=== PATIENT | female | born 1950 | race Caucasian/White ===

== ENCOUNTER 2024-04-12 15:02 | Observation (INO) ==
--- NOTE | 2024-04-12 15:14 | ED Triage Note ---
Date of Service April 12, 2024 Provider in Triage Author: Celestine Mccullough History of Present Illness This patient was briefly evaluated while in triage. An abbreviated physical exam was performed. This patient is a 74-year-old Female who presents to the ED for evaluation of 15 minutes of feeling tired x 15 minutes. Tongue felt swollen but couldnt control. Physical Exam GENERAL: 74 year old female. In no acute distress. SKIN: No lesions or rashes. HEART: Regular rate and rhythm. LUNGS: Clear to auscultation. ABDOMEN: Bowel sounds normoactive. No guarding or rigidity. No tenderness of palpation. NEURO: Alert and oriented. Facial asymmetry noted. Left forehead with less wrinkle and mouth pulls to right as does tongue. MUSCULOSKELETAL: No deformities to inspection of the extremities. PSYCH: Patient is pleasant and answers all questions appropriately. Pt taken directly to a room for further assessment.
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
[2024-04-12] MEDS: LABETALOL HCL IV 5 MG/ML 20ML IV STA ×2 (15:52→16:21)
[2024-04-12] MEDS: OPTIRAY 320 125ml IV ONE (15:53)
[2024-04-12 16:00] LABS: Basophils # (auto) 0.05 K/uL (0.00-0.20); Basophils % (auto) 0.5 %; Eosinophils # (auto) 0.17 K/uL (0.00-0.50); Eosinophils % (auto) 1.7 %; Hematocrit (blood only) 42.5 % (37.0-47.0); Hemoglobin 14.3 g/dl (12.0-16.0); Immature Granulocytes # (auto) 0.04 K/uL (0.01-0.20); Immature Granulocytes % (auto) 0.4 %; Lymphocytes # (auto) 4.19 K/uL (1.20-3.40); Lymphocytes % (auto) 42.4 %; Mean Corpuscular Hemoglobin 29.9 pg (25.0-34.0); Mean Corpuscular Hgb Conc 33.6 g/dL (32.0-36.0); Mean Corpuscular Volume 88.7 fL (80.0-100.0); Monocytes # (auto) 0.56 K/uL (0.11-0.59); Monocytes % (auto) 5.7 %; Neutrophils # (auto) 4.88 K/uL (1.40-6.50); Neutrophils % (auto) 49.3 %; Platelet Count 313 K/uL (130-400); RDW Coefficient of Variation 13.4 % (11.5-14.5); RDW Standard Deviation 44.2 fL (36.4-46.3); Red Blood Count 4.79 M/uL (4.20-5.40); White Blood Count 9.89 K/ul (4.8-10.8)
[2024-04-12 16:04] LABS: Albumin Globulin Ratio 1.1 (0.9-2); Albumin Level 4.5 gm/dl (3.4-5.0); BUN Creatinine Ratio 18.3 (10-20); Bilirubin,Total 0.3 mg/dl (0.2-1.0); Calcium 10.5 mg/dl (8.6-10.3); Creatinine Clr Calc Pharmacy 38.6 ml/min; Magnesium 2.1 mg/dl (1.7-2.4); Total Protein 8.5 gm/dl (6.0-8.3)
--- NOTE | 2024-04-12 16:04 | CT Scan Report ---
CT angio head w con CLINICAL HISTORY: neuro deficit, acute stroke suspected TECHNIQUE: CT angiography of the head was performed following intravenous administration of iodinated contrast. Coronal and sagittal MIPS were obtained from the axial data set and were submitted for rev iew. Automated dose lowering techniques and/or adjustment according to patient size were utilized fo r this examination. All measurements were calculated based on NASCET criteria. Comparison: None available at the time of this dictation. FINDINGS: CTA Head: The anterior and posterior cerebral circulations are patent. No hemodynamically significan t stenosis, aneurysm, dissection, or arteriovenous malformation is shown. IMPRESSION: No occlusion, hemodynamically significant stenosis, aneurysm, dissection, or arteriovenous malformati on in the major intracranial arteries. Assessment of stenosis of the internal carotid arteries is based on NASCET criteria. ACT 112: Negative or not required by law. Electronically signed by: Shabbir Shaikh M.D. 04/12/2024 4:02 PM
--- NOTE | 2024-04-12 16:06 | CT Scan Report ---
CT OF THE HEAD WITHOUT CONTRAST CLINICAL HISTORY: neuro deficit, acute stroke suspected COMPARISON STUDY: Head CT December 10, 2010. MRI of the brain December 10, 2010. TECHNIQUE: Helical axial images of the head were obtained without IV contrast. Automated exposure con trol was utilized for the study. A dose lowering technique was utilized adhering to the principles o f ALARA. FINDINGS: No acute intracranial hemorrhage, midline shift or mass effect is present. Mild ventricular dilatation is likely due to central atrophy. White matter hypodense foci favor small vessel disease. The basal cisterns are patent. No extra-axial collections are present. There are no findings to sugg est acute dural sinus thrombosis or acute territorial infarct. No significant calvarial abnormalities are present. Visualized portions of the sinuses and mastoid air cells are clear. IMPRESSION: No acute intracranial findings. ACT 112: Negative or not required by law. Electronically signed by: Italo Amador M.D. 04/12/2024 4:05 PM
[2024-04-12 16:10] LABS: Troponin I High Sensitivity 8.8 pg/ml (0-14)
--- NOTE | 2024-04-12 16:13 | CT Scan Report ---
CT ANGIOGRAPHY OF THE NECK WITH CONTRAST CLINICAL HISTORY: neuro deficit, acute stroke suspected COMPARISON STUDY: Carotid ultrasound December 10, 2010. Technique: CT angiography of the carotid and vertebral arteries was obtained using Optir[employer] and 3D rec onstruction on an independent workstation. NASCET criteria was utilized. Automated exposure control was utilized for the study. A dose lowering technique was utilized adhering to the principles of ALA RA. CT DOSE: 2010.51 mGy.cm Findings: Please note that the CTA of the head and the head CT will be reported separately. Visualize d portions of the lung apices are unremarkable. There is no cervical lymphadenopathy. There are no ce rvical spine fractures. The bilateral common carotid, cervical internal carotid and vertebral arterie s are patent. Incidental note is made of retropharyngeal carotids. There are no stenoses or dissectio ns within the [place] vessels of the neck. There is mild atherosclerotic plaque within the right carot id bifurcation without stenosis. There is no aneurysm within the neck. IMPRESSION: No stenosis or dissection within the bilateral common carotid, cervical internal carotid or vertebral arteries. ACT 112: Negative or not required by law. Electronically signed by: Italo Amador M.D. 04/12/2024 4:11 PM
[2024-04-12 16:15] LABS: INR 0.9 (0.9-1.1); Partial Thromboplastin Ratio 0.9; Partial Thromboplastin Time 24 Seconds (21-31); Prothrombin Time 9.6 Seconds (9.0-12.0)
[2024-04-12] MEDS: SODIUM CHLORIDE 0.9% 1,000 ML IV SCH (16:37)
[2024-04-12] MEDS: CLOPIDOGREL BISULFATE 300 MG TAB PO STA (16:38)
[2024-04-12] MEDS: ASPIRIN 81 MG ECTAB PO STA (16:38)
[2024-04-12 16:58] LABS: Adenovirus PCR Not Detected (NotDetected); Bordetella parapertussis PCR Not Detected (NotDetected); Bordetella pertussis PCR Not Detected (NotDetected); Chlamydia pneumoniae PCR Not Detected (NotDetected); Coronavirus 229E PCR Not Detected (NotDetected); Coronavirus CoV-2 (COVID19)PCR Not Detected (NotDetected); Coronavirus HKU1 PCR Not Detected (NotDetected); Coronavirus NL63 PCR Not Detected (NotDetected); Coronavirus OC43PCR Not Detected (NotDetected); Human Metapneumovirus PCR Not Detected (NotDetected); Influenza A PCR Not Detected (NotDetected); Influenza B PCR Not Detected (NotDetected); Mycoplasma pneumoniae PCR Not Detected (NotDetected); Parainfluenza Virus 1 PCR Not Detected (NotDetected); Parainfluenza Virus 2 PCR Not Detected (NotDetected); Parainfluenza Virus 3 PCR Not Detected (NotDetected); Parainfluenza Virus 4 PCR Not Detected (NotDetected); Respiratory Syncytial VirusPCR Not Detected (NotDetected); Rhinovirus/Enterovirus PCR Not Detected (NotDetected)
[2024-04-12] MEDS ORDERED: PHARMACIST DISCHARGE MED REC CONSULT PRN (17:13)
[2024-04-12] MEDS ORDERED: ONDANSETRON INJ 2 MG/ML 2 ML VIAL IV PRN (17:19)
[2024-04-12] MEDS ORDERED: ACETAMINOPHEN 325 MG TAB PO PRN (17:19)
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
--- NOTE | 2024-04-12 17:37 | XRay Report ---
EXAM: XR chest 1V portable CLINICAL HISTORY: NEURO DEFICIT, ACUTE STROKE SUSPECTED BRM. TECHNIQUE: An X-ray image of the chest is obtained in AP projection. COMPARISON: No prior studies are available for comparison. FINDINGS: Pulmonary Parenchyma: No evidence of consolidation, collapse, or focal opacities. No pulmonary nodules are identified. No evidence of pleural effusion or pleural thickening. Heart and Mediastinum: Despite portable projection, there is a normal configuration of the mediastinum and the cardiac size is normal. Bony Thorax: Bony thorax appears intact without fractures or deformities. Soft Tissues: Soft tissues overlying the chest wall are unremarkable. Cardiac monitoring electrodes. IMPRESSION: No acute cardiopulmonary abnormalities. Normal chest radiograph. Electronically signed by Faith Roque 04-12-2024 5:36 PM
[2024-04-12] MEDS: ATORVASTATIN 40 MG TAB PO STA (17:54)
--- NOTE | 2024-04-12 19:19 | Magnetic Resonance Report ---
EXAMINATION: MRI brain without contrast CLINICAL HISTORY: Stroke protocol left-sided facial weakness PRIORS: None TECHNIQUE: Multiplanar multisequence imaging was obtained through the brain without the use of intravenous contrast. FINDINGS: Mild parenchymal volume loss is noted. Appropriate vance-white differentiation is seen. No restricted diffusion to suggest a recent infarction. No intraparenchymal blood products, ventriculomegaly or edema. Normal flow-voids demonstrated on T2 weighted imaging. Multiple scattered hyperintensities present within the deep white matter likely representing small vessel occlusive disease. Cerebellar tonsils are not low lying. IMPRESSION: No MRI evidence of an acute intracranial abnormality. Electronically signed by Alejandra Kapoor 04-12-2024 7:19 PM
--- OUTSIDE RECORDS SUMMARY | 2024-04-12 23:05 | External Medical Summary | Continuity of Care Document ---
Author Name Unknown Organization [address] Address [address] [place], [place] [id number] Care Team Providers Care Training Designer Name Role Phone Manda Garcia Primary Care P hysician [phone] Encounter [facility] [id number] Date(s): 03/28/24 - 03/28/24 [facility] [address] [place] [address] [place] [address], [facility] [address] [place] [address] [phone] Encounter Diagnosis Diabetes(Discharge Diagnosis) - 03/28/24 HLD (hyperlipidemia)(Discharge Diagnosis) - 03/28/24 Chronic constipation with overflow(Discharge Diagnosis) - 03/28/24 HTN (hypertension)(Discharge Diagnosis) - 03/28/24 Hypovitaminosis D(Discharge Diagnosis) - 03/28/24 Discharge Disposition: Home or Self Care Attending Physician: Jacob Ferreira DO, Mariana Annette Referring Physician: Jacob Ferreira DO, Mariana Annette Allergies, Adverse Reactions, Alerts Substance Criticality Severity Reaction Reaction Severity Status penicillin fever Active Percocet Passed out Active Benadryl removed lining from lungs liquid form Active red dye diuretic diarrhea Active Assessment and Plan Extracted from: Title:Office Visit Note Author:Jacob Ferreira DO, Mariana Annette Date:03/28/24 1.Diabetes STATUS:Chronic DATA:Labs reviewed. GOAL:A1c<8 PLAN: Discussed diet changes as A1c is climbing, recheck in 3 mo 2.HLD (hyperlipidemia) STATUS:Chronic stable. DATA:Labs reviewed. GOAL:Maintain stability. PLAN: Discussed diet changes, Pt did not tolerate statin in the past but does not remember what sx she had. May need to re-start statin if not improved with diet changes. 3.Chronic constipation with overflow STATUS:Chronic, improved DATA:Labs reviewed. GOAL:Maintain stability. PLAN:Cont current regimen . 4.HTN (hypertension) STATUS:Chronic stable. DATA:Labs reviewed. GOAL:Maintain stability. PLAN:Cont losartan . 5.Hypovitaminosis D STATUS:Chronic stable. DATA:Labs reviewed. GOAL:Maintain stability. PLAN:Cont vitamin D supplementation . Advised to call her manager room office and request appt withfemale provider Immunizations Given and Recorded Vaccine Date Status Refusal Reason SARS-CoV-2 mRNA (Pfizer 12+) bivalent 09/10/22 Rec orded SARS-CoV-2 mRNA (Pfizer 12+) bivalent 01/12/22 Rec orded influenza virus vaccine, inactivated 1 02/16/22 Gi nani influenza virus vaccine, inactivated 01/09/21 Ben rded influenza virus vaccine, inactivated 11/23/18 Ben rded influenza virus vaccine, inactivated 11/15/14 Ben rded SARS-CoV-2 mRNA ([id number]) 08/10/21 Re corded SARS-CoV-2 (COVID-19) mRNA BNT-162b2 vax 01/27/21 Recorded SARS-CoV-2 (COVID-19) mRNA BNT-162b2 vax 06/04/20 Recorded SARS-CoV-2 (COVID-19) mRNA BNT-162b2 vax 05/14/20 Recorded SARS-CoV-2 mRNA (tozinameran 5y-11y) 11/29/20 Ben rded pneumococcal 23-valent vaccine 01/27/18 Recorded pneumococcal 23-valent vaccine 08/02/14 Recorded pneumococcal 13-valent vaccine 11/19/16 Recorded pneumococcal 13-valent vaccine 02/13/15 Recorded 1Result Comment: Malinda Ware MA Medications losartan 25 mg oral tablet Start: 02/09/24 4:11:00 PM EDT, 1 tab, PO, Daily, Disp# 30 tab, Refills: 11, coated tablets, Pharmacy: [id number] Start Date: 02/09/24 Status: Ordered multivitamin Start: 06/30/23 1:02:00 PM EDT, 1 tab, PO, Daily Start Date: 06/30/23 Status: Ordered Rolaids Start: 03/28/24 2:09:00 PM EST Start Date: 03/28/24 Status: Ordered vegetable laxative Start: 05/25/23 1:36:00 PM EST, vegetable laxative, Note to Pharmacy: as needed Start Date: 05/25/23 Status: Ordered Vitamin D3 50 mcg (2000 intl units) oral capsule Start: 03/28/24 2:09:00 PM EST, 1 cap, PO, Daily Start Date: 03/28/24 Status: Ordered Mental Status 03/28/24 Barriers to Learning one year None evide nt Mandatory Health Literacy Documentation Yes Health Literacy Communication Barriers N ever Primary Language Setswana Problem List Condition Confirmation Course Effective Dates Status H ealth Status Informant Diarrhea Confirmed Active BMI 30.0-30.9,adult Confirmed Active Chronic constipation with overflow Confirmed Active Diabetes mellitus Confirmed Active Elevated blood pressure reading without diagnosis of hypertension Confirmed Active HTN (hypertension) Confirmed Active Insomnia, unspecified Confirmed Active Intellectual disability Confirmed Active IBS (irritable bowel syndrome) Confirmed Active Hypovitaminosis D Confirmed Active Weight loss Confirmed Active Diagnosis Diagnosis Type Effective Dates Health Status Clinical Service Informant Diabetes Discharge Diagnosis 03/28/24 Non-Specified HLD (hyperlipidemia) Discharge Diagnosis 03/28/24 Non-Specified Chronic constipation with overflow Discharge Diagnosis 03/28/24 Non-Specified HTN (hypertension) Discharge Diagnosis 03/28/24 Non-Specified Hypovitaminosis D Discharge Diagnosis 03/28/24 Non-Specified Procedures Procedure Date Related Diagnosis Body Site Status Colonoscopy 1 07/13/23 Completed 1Divertiuclosis in the sigmoid colon and in the descending colon. The retucm, sigmoid colon, descending colon, splenic flexure, transverse colon, hepatic flexure, ascending colon, cecum and recto-sigmoid colon are normal. Biopsied. Repeat in 10 years. Vital Signs Most recent to oldest [Reference Range]: 1 Patient Weight 70.7 kg (03/28/24 1:47 PM) Temperature [36.5-37.9 DegC] 36.4 DegC *LOW* (03/28/24 1:47 PM) Blood Pressure 132/82mmHg (03/28/24 1:47 PM) Cuff Pulse Pressure 50 mmHg (03/28/24 1:47 PM) Social History Social History Type Response Smoking Status Never smoked cigaret carlo Sex Female Sex Representation Female (finding) FCM Outpt Note * Jacob Ferreira DO, Mariana Annette: PERFORM Event Display: FCM Outpt Note Authored Date: [id number] Chief Complaint 6mo f/u, lab/urine result request. Had flu inj. History of Present Illness Presents for chronic condition management Has a hx of diet controlled diabetes, chronic constipation, HTN, low vitamin D. DM - A1c 7.6 - has been eating a lot more than usual HLD - C 249, TG >400 - previously on simvastatin but caused dizziness?, not sure if she tried any other statins HTN - on losartan 25mg, requests coated tablet otherwise gets heartburn Vitamin D deficiency - taking 2000 IU of vitamin D Constipation - takes laxative PRN Taking coricidinfor cold symptoms Wants referral for a different air boatswain, wants a female provider. 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 Physical Exam Vitals & Measurements T:36.4C BP:132/82 SpO2:95% WT:70.700kg(Dosing) WT:70.7kg PHQ2 Data(Data Documented on:03/28/2024 13:45) Emotional health assessment NEGATIVE General: _Alert and oriented, No acute distress Cardiovascular: _Normal rate, Regular rhythm, No murmur, No gallop. Respiratory: _Lungs are clear to auscultation, Respirations are non-labored, Breath sounds are equal Psych: Mood-affect congruence. Speech is of normal pace and content Assessment/Plan 1.Diabetes STATUS:Chronic DATA:Labs reviewed. GOAL:A1c<8 PLAN: Discussed diet changes as A1c is climbing, recheck in 3 mo 2.HLD (hyperlipidemia) STATUS:Chronic stable. DATA:Labs reviewed. GOAL:Maintain stability. PLAN: Discussed diet changes, Pt did not tolerate statin in the past but does not remember what sx she had. May need to re-start statin if not improved with diet changes. 3.Chronic constipation with overflow STATUS:Chronic, improved DATA:Labs reviewed. GOAL:Maintain stability. PLAN:Cont current regimen . 4.HTN (hypertension) STATUS:Chronic stable. DATA:Labs reviewed. GOAL:Maintain stability. PLAN:Cont losartan . 5.Hypovitaminosis D STATUS:Chronic stable. DATA:Labs reviewed. GOAL:Maintain stability. PLAN:Cont vitamin D supplementation . Advised to call her manager room office and request appt withfemale provider Attestation Time spent: Pre-visit planning: _5 Ffhx-os-dcnj visit: _32 Post-visit (orders/documentation/coordination of care):4 Total visit time: _41 Problem List/Past Medical History Ongoing BMI 30.0-30.9,adult Chronic constipation with overflow Diabetes mellitus Diarrhea Elevated blood pressure reading without diagnosis of hypertension HTN (hypertension) Hypovitaminosis D IBS (irritable bowel syndrome) Insomnia, unspecified Intellectual disability Weight loss Resolved Hypertension Procedure/Surgical History Colonoscopy| Service Date: 07/13/2023 Medications calcium carbonate-magnesium hydroxide(Rolaids) cholecalciferol(Vitamin D3 50 mcg (2000 intl units) oral capsule), 50 mcg= 1 cap, PO, Daily losartan(losartan 25 mg oral tablet), 1 tab, PO, Daily, 11 refills multivitamin, 1 tab, PO, Daily unlisted medication(vegetable laxative) Allergies Benadrylremoved lining from lungs, liquid form PercocetPassed out penicillinfever red dyediuretic, diarrhea Social History Smoking Status Never smoked cigarettes Alcohol - Denies Alcohol Use Tobacco - Denies Tobacco Use Family History Unable to obtain family history Immunizations Vaccine Date Status SARS-CoV-2 mRNA (Pfizer 12+) bivalent 09/10/2022 Recorded influenza virus vaccine, inactivated 02/16/2022 Given Comments : Malinda Ware MA SARS-CoV-2 mRNA (Pfizer 12+) bivalent 01/12/2022 Recorded SARS-CoV-2 mRNA (qsnohkjwllw-iibw-jwu) 08/10/2021 Recorded SARS-CoV-2 (COVID-19) mRNA BNT-162b2 vax 01/27/2021 Recorded influenza virus vaccine, inactivated 01/2021 Recorded SARS-CoV-2 mRNA (tozinameran 5y-11y) 11/29/2020 Recorded SARS-CoV-2 (COVID-19) mRNA BNT-162b2 vax 06/04/2020 Recorded SARS-CoV-2 (COVID-19) mRNA BNT-162b2 vax 05/14/2020 Recorded influenza virus vaccine, inactivated 11/23/2018 Recorded pneumococcal 23-valent vaccine 01/27/2018 Recorded pneumococcal 13-valent vaccine 11/19/2016 Recorded pneumococcal 13-valent vaccine 02/13/2015 Recorded influenza virus vaccine, inactivated 11/15/2014 Recorded pneumococcal 23-valent vaccine 08/02/2014 Recorded Recommendations Health Maintenance Pending(in the next year) OverDue Adult Influenza Vaccine due10/09/23and every 1year Due Adult Social Determinants of Health Screening due03/28/24Unknown Frequency Adult Tdap/Td Vaccine due03/28/24Unknown Frequency Medicare Annual Wellness Visit due03/28/24and every 1year Osteoporosis Screening due03/28/24One-time only Shingles Vaccine due03/28/24One-time only Due In Future Diabetic Eye Exam not due until08/06/24and every 731day Diabetes Management A1c not due until03/22/25and every 366day Satisfied(in the past 1 year) Satisfied Body Mass Index on08/23/23.Satisfied by HELENA [place] Lori Diabetes Management A1c on03/21/24.Satisfied by Contributor_system, [email or web address] Diabetes Nephropathy Management on03/21/24.Satisfied by Contributor_system, [email or web address] Lipid Screening on03/21/24.Satisfied by Contributor_system, [email or web address] Electronic Signature on File Electronically Reviewed/Signed by: Manda Ferreira DO Author Signature Dt/Tm:03/28/2024 04:49 PM Department of Family Medicine [facility] Patient Care team information Care Team Personnel Name: Jacob Ferreira DO, Mariana Annette Position: Physician - Family Med Member Role: Primary Care Provider Address: [address] [place] [address] Care Team Related Persons Name: STEVEN CENTENO Name: MICHELE MAC"
--- OUTSIDE RECORDS SUMMARY | 2024-04-12 23:06 | External Medical Summary | Continuity of Care Document ---
Author Name Unknown Organization [facility] [address] [place], [place] [id number] Care Team Providers Care Auto Locator Name Role Phone Manda Garcia Primary Care P laurensihuseyin [phone] [id number]s): 03/21/24 - 03/21/24 [facility] [address] [place] [address] [facility] [address] [place], [place] [phone] Encounter Diagnosis Essential (primary) hypertension(Final) - Irritable bowel syndrome, unspecified(Final) - Sciatica, unspecified side(Final) - Vitamin D deficiency, unspecified(Final) - Type 2 diabetes mellitus without complications(Final) - Discharge Disposition: Home or Self Care Attending Physician: Jacob Ferreira DO, Mariana Annette Referring Physician: Jacob Ferreira DO, Mariana Annette Allergies, Adverse Reactions, Alerts Substance Criticality Severity Reaction Reaction Severity Status penicillin fever Active Percocet Passed out Active Benadryl removed lining from lungs liquid form Active red dye diuretic diarrhea Active Immunizations Given and Recorded Vaccine Date Status Refusal Reason SARS-CoV-2 mRNA (Pfizer 12+) bivalent 09/10/22 Rec orded SARS-CoV-2 mRNA (Pfizer 12+) bivalent 01/12/22 Rec orded influenza virus vaccine, inactivated 1 02/16/22 Gi nani influenza virus vaccine, inactivated 01/09/21 Ben rded influenza virus vaccine, inactivated 11/23/18 Ben rded influenza virus vaccine, inactivated 11/15/14 Ben rded SARS-CoV-2 mRNA ([id number]) 08/10/21 Re corded SARS-CoV-2 (COVID-19) mRNA BNT-162b2 vax 01/27/21 Recorded SARS-CoV-2 (COVID-19) mRNA BNT-162b2 vax 06/04/20 Recorded SARS-CoV-2 (COVID-19) mRNA BNT-162b2 vax 05/14/20 Recorded SARS-CoV-2 mRNA (tozinameran 5y-11y) 11/29/20 Ben rded pneumococcal 23-valent vaccine 01/27/18 Recorded pneumococcal 23-valent vaccine 08/02/14 Recorded pneumococcal 13-valent vaccine 11/19/16 Recorded pneumococcal 13-valent vaccine 02/13/15 Recorded 1Result Comment: Malinda Ware MA Medications Benadryl Start: 08/23/23 1:02:00 PM EDT Start Date: 08/23/23 Status: Ordered losartan 25 mg oral tablet Start: 02/09/24 4:11:00 PM EDT, 1 tab, PO, Daily, Disp# 30 tab, Refills: 11, coated tablets, Pharmacy: [id number] Start Date: 02/09/24 Status: Ordered multivitamin Start: 06/30/23 1:02:00 PM EDT, 1 tab, PO, Daily Start Date: 06/30/23 Status: Ordered vegetable laxative Start: 05/25/23 1:36:00 PM EST, vegetable laxative, Note to Pharmacy: as needed Start Date: 05/25/23 Status: Ordered Problem List Condition Confirmation Course Effective Dates [...] D Confirmed Active Weight loss Confirmed Active Procedures Procedure Date Related Diagnosis Body Site Status Colonoscopy 1 07/13/23 Completed 1Divertiuclosis in the sigmoid colon and in the descending colon. The retucm, sigmoid colon, descending colon, splenic flexure, transverse colon, hepatic flexure, ascending colon, cecum and recto-sigmoid colon are normal. Biopsied. Repeat in 10 years. Results Laboratory List Name Date Comprehensive Metabolic Panel (COMP META B PANEL) 03/21/24 Hemoglobin A1C (HEMOGLOBIN, A1C) 4 Lipid Profile (LIPOPROTEINS) 03/21/24 Microalbumin, Urine, Random (MICROALBUMI N, RD UR) 03/21/24 Vitamin D, 25-Hydroxy Level, Total (25-H YDROXY VITAMIN D) 03/21/24 Most recent to oldest [Reference Range]: 1 eGFR CKD-EPI [>60 mL/min/1.73 m2] 57 mL/ min/1.73 m2 1 *LOW* (03/21/24 11:45 AM) Estimated Average Glucose 171 mg/dL 2 (03/21/24 11:45 AM) Vitamin D, 25-Hydroxy [30-100 ng/mL] 37 ng/mL 3 (03/21/24 11:45 AM) Non-HDL 195 mg/dL 4 (03/21/24 11:45 AM) Estimated CrCl 38.02 mL/min (03/21/24 1:18 PM) Micro Alb (u) [<2.00 mg/dL] 3.57 mg/dL *HI* (03/21/24 11:45 AM) Anion Gap [5-14 mmol/L] 10 mmol/L (03/21/24:45 AM) Alb [3.5-5.0 g/dL] 4.4 g/dL (03/21/24 11:45 AM) Alk Phos [38-126 unit/L] 89 unit/L (03/21/24:45 AM) ALT [<35 unit/L] 25 unit/L (03/21/24:45 AM) AST [15-46 unit/L] 24 unit/L (03/21/24 11:45 AM) BUN [7-20 mg/dL] 18 mg/dL (03/21/24:45 AM) Ca [8.4-10.2 mg/dL] 9.5 mg/dL (03/21/24 11:45 AM) Chol/HDL 5 (03/21/24:45 AM) Chol [125-200 mg/dL] 249 mg/dL *HI* (03/21/24 11:45 AM) Cl- [96-107 mmol/L] 102 mmol/L (03/21/24 11:45 AM) HCO3 [22-30 mmol/L] 25 mmol/L (03/21/24 11:45 AM) Cret [0.60-1.00 mg/dL] 1.03 mg/dL *HI* (03/21/24 11:45 AM) HbA1c [4.0-6.0 %] 7.6 % *HI* (03/21/24 11:45 AM) Glu [74-106 mg/dL] 139 mg/dL *HI* (03/21/24 11:45 AM) HDL [>35 mg/dL] 54 mg/dL (03/21/24 11:45 AM) K [3.5-5.1 mmol/L] 3.9 mmol/L (03/21/24 11:45 AM) LDL Chol, Calculated [50-130 mg/dL] NOT CALCULATED mg/dL (03/21/24 11:45 AM) Micro Alb Ratio [<20 ug/mg cret] 26 ug/m g cret *HI* (03/21/24 11:45 AM) Na [137-145 mmol/L] 137 mmol/L (03/21/24 11:45 AM) T Bili [0.2-1.3 mg/dL] 0.5 mg/dL (03/21/24 11:45 AM) Prot [6.3-8.2 g/dL] 7.9 g/dL (03/21/24 11:45 AM) TG [<200 mg/dL] 413 mg/dL *HI* (03/21/24 11:45 AM) Creat (u) 135.60 mg/dL 5 (03/21/24 11:45 AM) 1Result Comment: Testing Performed By: Dept of Pathology [facility] [address], [address] [place] [address], [place] [address] 2Result Comment: Testing Performed By: Dept of Pathology [facility] [address], [address] [facility], [place] [address] 3Result Comment: Deficiency: <20 ng/mL Insufficiency: 21-29 ng/mL Sufficiency: 30-100 ng/mL Potenial Toxicity: >150 ng/mL 4Result Comment: Testing Performed By: Dept of Pathology [facility] [address], [address] [facility] [place] [address] 5Result Comment: Reference Range for Random Urine Not Established. Social History Social History Type Response Smoking Status Never smoked cigaret carlo Sex Female Sex Representation Female (finding) Patient Care team information Care Team Personnel Name: Jacob Ferreira DO, Mariana Annette Position: Physician - Family Med Member Role: Primary Care Provider Address: [address] [facility] [address] [place] [id number] [place] Care Team Related Persons Name: STEVEN CENTENO Name: MICHELE MAC
[2024-04-13] MEDS: CALCIUM CARBONATE 500 MG CHEWABLE TAB PO PRN (02:23)
[2024-04-13 04:10] LABS: Basophils # (auto) 0.03 K/uL (0.00-0.20); Basophils % (auto) 0.3 %; Eosinophils # (auto) 0.12 K/uL (0.00-0.50); Eosinophils % (auto) 1.3 %; Hematocrit (blood only) 36.7 % (37.0-47.0); Hemoglobin 12.2 g/dl (12.0-16.0); Immature Granulocytes # (auto) 0.03 K/uL (0.01-0.20); Immature Granulocytes % (auto) 0.3 %; Lymphocytes # (auto) 3.42 K/uL (1.20-3.40); Lymphocytes % (auto) 36.4 %; Mean Corpuscular Hemoglobin 29.6 pg (25.0-34.0); Mean Corpuscular Hgb Conc 33.2 g/dL (32.0-36.0); Mean Corpuscular Volume 89.1 fL (80.0-100.0); Mean Platelet Volume 9.9 fL (9.4-12.4); Monocytes # (auto) 0.69 K/uL (0.11-0.59); Monocytes % (auto) 7.3 %; Neutrophils % (auto) 54.4 %; Platelet Count 287 K/uL (130-400); RDW Coefficient of Variation 13.8 % (11.5-14.5); Red Blood Count 4.12 M/uL (4.20-5.40); White Blood Count 9.39 K/ul (4.8-10.8)
[2024-04-13 04:26] LABS: Alanine Aminotransferase 19 U/L (7-52); Albumin Level 3.8 gm/dl (3.4-5.0); Alkaline Phosphatase 62 U/L (34-104); Anion Gap 11 (3-11); Aspartate Aminotransferase 21 U/L (13-39); BUN Creatinine Ratio 17.7 (10-20); Bilirubin,Total 0.3 mg/dl (0.2-1.0); Blood Urea Nitrogen 20 mg/dl (6-23); Calcium 9.2 mg/dl (8.6-10.3); Carbon Dioxide 25 mmol/L (21-32); Chloride 103 mmol/L (98-107); Cholesterol 243 mg/dl (0-200); Creatinine Clr Calc Pharmacy 26.6 ml/min; Glucose 169 mg/dl (70-99(Fasting)); HDL Cholesterol 51 mg/dl; Potassium 3.9 mmol/L (3.5-5.1); Sodium 139 mmol/L (136-145); Triglycerides 576 mg/dl (0-150)
[2024-04-13 04:40] LABS: Thyroid Stimulating Hormone 3.957 uIu/ml (0.300-4.500)
[2024-04-13 04:50] LABS: Albumin Globulin Ratio 1.2 (0.9-2); Chol HDL Ratio 4.8 (0-5); Globulin 3.2 gm/dl (2.5-4.0)
[2024-04-13 07:07] LABS: Estimated Average Glucose 189 mg/dl; Hemoglobin A1C 8.2 % (4.5-5.6)
[2024-04-13] MEDS: ASPIRIN 81 MG ECTAB PO SCH (09:05)
[2024-04-13] MEDS: CLOPIDOGREL BISULFATE 75 MG TAB PO SCH (09:06)
[2024-04-13] MEDS: ATORVASTATIN 40 MG TAB PO SCH (09:06)
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
--- NOTE | 2024-04-13 10:21 | Pharmacy Report ---
- Date of Service April 13, 2024 - Pharmacy CVA/TIA Medication Review Medications to Prevent Stroke handout has been added to the patients discharge packet. Antiplatelet(s) * aspirin 81 mg daily * plavix 75 mg daily Cholesterol * High intensity statin: atorvastatin 40 mg daily DVT Prophylaxis * SCD knee Therapeutic Anticoagulation * No history of Afib/Aflutter noted in the past * Per notes, consideration of outpatient cardiac monitoring recommended to determine if atrial flutter or fibrillation Type 2 Diabetes * Patient with A1c of 8.2% indicating diabetes * Provider aware patient not currently on any diabetes medications. Discussed use of low dose metformin + agent with CVD benefit (SGLT2 or GLP1) and provider agrees these agents are necessary and will assess on discharge
[2024-04-13] MEDS: METOPROLOL TARTRATE 25 MG TAB PO SCH (11:19)
--- NOTE | 2024-04-13 13:20 | Electrocardiogram Report ---
Test Reason : Blood Pressure : */* mmHG Vent. Rate : 123 BPM Atrial Rate : 123 BPM P-R Int : 176 ms QRS Dur : 74 ms QT Int : 338 ms P-R-T Axes : 31 20 22 degrees QTcB Int : 483 ms Sinus tachycardia Nonspecific ST abnormality Abnormal ECG When compared with ECG of 08-Apr-2023 15:13, Vent. rate has increased by 53 bpm Confirmed by Arjun Martins ([id number]) on 04/13/2024 1:19:56 PM Referred By: REFERRED SELF Confirmed By: Arjun Martins
--- NOTE | 2024-04-13 14:16 | XCELERA ---
[id number]
--- NOTE | 2024-04-13 16:19 | Hospitalist Progress Note ---
Date of Service April 13, 2024 Assessment & Plan (1) TIA (transient ischemic attack): Plan: clinical picture most c/w TIA had had transient expressive aphasia & facial droop per bystanders symptoms/signs resolved MRI brain negative for stroke localization - MCA territory? CTA head/neck negative tele thus far w/o a.fib or a.flutter echo normal; no PFO, no source of embolus small vessel TIA?? other? unfortunately it appears she is statin intolerant attempts to start statin this admission have led to dizziness which she had years ago when she attempted a statin then consider zetia consider Repatha cont asa/plavix x 21 days; then asa 81mg daily alone thereafter for secondary prevention Rx the diabetes (2) Uncontrolled type 2 diabetes mellitus with hyperglycemia: Plan: hba1c 8.2% c/w T2DM consider once daily metformin consider once daily Jardiance BSGs acceptable while here thus far (3) Hypertensive emergency: Plan: presented with systolic BPs in the 220s and 230s this is in the setting of a TIA BPs have gradually improved but still remain quite high was started on metoprolol 25mg BID will titrate to 50mg BID (4) Dizziness: Plan: side effect from statin? due to TIA? due to uncontrolled HTN? orthostatic BPs negative does have horizontal nystagmus so cannot rule out inner ear issue will ask PT to perform vestibular eval start meclizine 12.5mg TID (5) Hypertension: Plan: see above (6) Intellectual disability: Plan: known diagnosis but able to live independently (7) Hyperlipidemia: Plan: likely statin intolerant dizziness experienced with prior statin trial years ago, and again this admission consider zetia consider Repatha consider dedicated triglyceride lowering agent (8) Fall: Plan: after attempting to get up OOB experienced dizziness fortunately no specific injury seen on exam fall precautions (9) Morbid obesity with BMI of 45.0-49.9, adult: Plan: BMI 47 Plan DVT proph - add lovenox tomorrow if she stays beyond tomorrow PT, OT evals Admission and Anticipated Discharge Date Admission Date: April 12, 2024 Subjective patient states that ever since starting the statin she has been "dizzy" states she "loses her balance" with trying to get up typically has no ambulatory issues at baseline when she tries to describe the dizziness it is not a lightheaded feeling; or thostatic BPs were indeed negative today she does describe some vertigo symptoms she states that years ago when she was placed on statin therapy she also became dizzy with such at rest in bed she has no dizziness/no vertigo later in the day - before receiving meclizine - patient had attempted to stand up on her own from the bed she became dizzy and fell on her buttocks I reassessed her after this fall late in the evening - NO injury fortunately I asked her to call the nursing staff any time she needed to get up denies any acute tinnitus or hearing loss Review of Systems Review of Systems: CV - no chest pain, no orthopnea pulm - no shortness of breath GI - no vomiting, no pain Physical Exam Physical Exam: gen - NAD, lying comfortably in bed eyes - PERRL, cataract shadows b/l, horizontal nystagmus present with fast twitch to the left neck - no JVD heart - RRR, s1 s2, no murmur lungs - CTA b/l abd - soft NT ND BS+ ext - no edema, pulses 2+ b/l neuro - strength 5/5 x 4 exts; no facial droop; speech clear/fluent after her fall later in the day - musculoskeletal - b/l hips with normal ROM and no pain; pelvis - no pain with palpation; knees - full ROM without pain; no signs of trauma to either leg or either arm Results & Data Results & Data Vital Signs (Past 12 Hours) Vital Signs Temp Pulse Pulse Resp BP Pulse Ox O2 Del Method 04/13/24 15:07 36.8 C 75 18 171/83 H 93 Room Air 04/13/24 14:55 79 04/13/24 11:20 36.6 C 90 18 201/106 H 95 Room Air 04/13/24 08:00 85 04/13/24 07:50 36.5 C 85 18 205/95 H 96 Room Air Laboratory Results Laboratory Results - last 48 hr 04/12/24 04/12/24 04/12/24 15:32 15:59 16:00 WBC 9.89 RBC 4.79 Hgb 14.3 Hct 42.5 MCV 88.7 MCH 29.9 MCHC 33.6 RDW Std Deviation 44.2 RDW Coeff of Syd 13.4 Plt Count 313 MPV 10.0 Immature Gran % (Auto) 0.4 Neut % (Auto) 49.3 Lymph % (Auto) 42.4 [place] % (Auto) 5.7 Eos % (Auto) 1.7 Baso % (Auto) 0.5 Neut # (Auto) 4.88 Lymph # (Auto) 4.19 H [place] # (Auto) 0.56 Eos # (Auto) 0.17 Baso # (Auto) 0.05 Immature Gran # (Auto) 0.04 PT 9.6 INR 0.9 APTT 24 PTT Ratio 0.9 Sodium 138 Potassium 4.0 Chloride 99 Carbon Dioxide 28 Anion Gap 11 BUN 20 Creatinine 1.09 Est Cr Clr Drug Dosing 38.6 eGFR 52.98 BUN/Creatinine Ratio 18.3 Glucose 116 H POC Glucose 111 H Estimat Average Glucose Hemoglobin A1c Calcium 10.5 H Magnesium 2.1 Total Bilirubin 0.3 AST 25 ALT 25 Alkaline Phosphatase 78 Troponin I High Sens 8.8 Total Protein 8.5 H Albumin 4.5 Globulin 4.0 Albumin/Globulin Ratio 1.1 Triglycerides Cholesterol VLDL Cholesterol, Calc HDL Cholesterol Cholesterol/HDL Ratio TSH Adenovirus (PCR) Not Detected B. pertussis DNA (PCR) Not Detected B.parapertussis DNA PCR Not Detected C. pneumoniae DNA (PCR) Not Detected Coronavirus OC43 (PCR) Not Detected Coronavirus HKU1 (PCR) Not Detected Coronavirus 229E (PCR) Not Detected SARS-CoV-2 (PCR) Not Detected Coronavirus NL63 (PCR) Not Detected Human Metapneumovir PCR Not Detected Influenza Type A (PCR) Not Detected Influenza Type B (PCR) Not Detected M. pneumoniae (PCR) Not Detected Parainfluenza 1 (PCR) Not Detected Parainfluenza 2 (PCR) Not Detected Parainfluenza 3 (PCR) Not Detected Parainfluenza 4 (PCR) Not Detected RSV (PCR) Not Detected Entero/Rhino (PCR) Not Detected 04/12/24 04/12/24 04/12/24 17:56 21:28 23:22 WBC RBC Hgb Hct MCV MCH MCHC RDW Std Deviation RDW Coeff of Syd Plt Count MPV Immature Gran % (Auto) Neut % (Auto) Lymph % (Auto) [place] % (Auto) Eos % (Auto) Baso % (Auto) Neut # (Auto) Lymph # (Auto) [place] # (Auto) Eos # (Auto) Baso # (Auto) Immature Gran # (Auto) PT INR APTT PTT Ratio Sodium Potassium Chloride Carbon Dioxide Anion Gap BUN Creatinine Est Cr Clr Drug Dosing eGFR BUN/Creatinine Ratio Glucose POC Glucose 130 H Estimat Average Glucose Hemoglobin A1c Calcium Magnesium Total Bilirubin AST ALT Alkaline Phosphatase Troponin I High Sens 11.3 16.5 H D Total Protein Albumin Globulin Albumin/Globulin Ratio Triglycerides Cholesterol VLDL Cholesterol, Calc HDL Cholesterol Cholesterol/HDL Ratio TSH Adenovirus (PCR) B. pertussis DNA (PCR) B.parapertussis DNA PCR C. pneumoniae DNA (PCR) Coronavirus OC43 (PCR) Coronavirus HKU1 (PCR) Coronavirus 229E (PCR) SARS-CoV-2 (PCR) Coronavirus NL63 (PCR) Human Metapneumovir PCR Influenza Type A (PCR) Influenza Type B (PCR) M. pneumoniae (PCR) Parainfluenza 1 (PCR) Parainfluenza 2 (PCR) Parainfluenza 3 (PCR) Parainfluenza 4 (PCR) RSV (PCR) Entero/Rhino (PCR) 04/13/24 04/13/24 04/13/24 03:29 07:47 10:23 WBC 9.39 RBC 4.12 L Hgb 12.2 Hct 36.7 L MCV 89.1 MCH 29.6 MCHC 33.2 RDW Std Deviation 45.0 RDW Coeff of Syd 13.8 Plt Count 287 MPV 9.9 Immature Gran % (Auto) 0.3 Neut % (Auto) 54.4 Lymph % (Auto) 36.4 [place] % (Auto) 7.3 Eos % (Auto) 1.3 Baso % (Auto) 0.3 Neut # (Auto) 5.10 Lymph # (Auto) 3.42 H [place] # (Auto) 0.69 H Eos # (Auto) 0.12 Baso # (Auto) 0.03 Immature Gran # (Auto) 0.03 PT INR APTT PTT Ratio Sodium 139 Potassium 3.9 Chloride 103 Carbon Dioxide 25 Anion Gap 11 BUN 20 Creatinine 1.13 Est Cr Clr Drug Dosing 26.6 eGFR 50.74 BUN/Creatinine Ratio 17.7 Glucose 169 H POC Glucose 156 H Estimat Average Glucose 189 Hemoglobin A1c 8.2 H Calcium 9.2 Magnesium 2.0 Total Bilirubin 0.3 AST 21 ALT 19 Alkaline Phosphatase 62 Troponin I High Sens 13.6 12.8 Total Protein 7.0 Albumin 3.8 Globulin 3.2 Albumin/Globulin Ratio 1.2 Triglycerides 576 H Cholesterol 243 H VLDL Cholesterol, Calc TNP HDL Cholesterol 51 Cholesterol/HDL Ratio 4.8 TSH 3.957 Adenovirus (PCR) B. pertussis DNA (PCR) B.parapertussis DNA PCR C. pneumoniae DNA (PCR) Coronavirus OC43 (PCR) Coronavirus HKU1 (PCR) Coronavirus 229E (PCR) SARS-CoV-2 (PCR) Coronavirus NL63 (PCR) Human Metapneumovir PCR Influenza Type A (PCR) Influenza Type B (PCR) M. pneumoniae (PCR) Parainfluenza 1 (PCR) Parainfluenza 2 (PCR) Parainfluenza 3 (PCR) Parainfluenza 4 (PCR) RSV (PCR) Entero/Rhino (PCR) 04/13/24 04/13/24 04/13/24 11:47 16:53 16:55 WBC RBC Hgb Hct MCV MCH MCHC RDW Std Deviation RDW Coeff of Syd Plt Count MPV Immature Gran % (Auto) Neut % (Auto) Lymph % (Auto) [place] % (Auto) Eos % (Auto) Baso % (Auto) Neut # (Auto) Lymph # (Auto) [place] # (Auto) Eos # (Auto) Baso # (Auto) Immature Gran # (Auto) PT INR APTT PTT Ratio Sodium Potassium Chloride Carbon Dioxide Anion Gap BUN Creatinine Est Cr Clr Drug Dosing eGFR BUN/Creatinine Ratio Glucose POC Glucose 171 H 129 H Estimat Average Glucose Hemoglobin A1c Calcium Magnesium Total Bilirubin AST ALT Alkaline Phosphatase Troponin I High Sens 12.6 Total Protein Albumin Globulin Albumin/Globulin Ratio Triglycerides Cholesterol VLDL Cholesterol, Calc HDL Cholesterol Cholesterol/HDL Ratio TSH Adenovirus (PCR) B. pertussis DNA (PCR) B.parapertussis DNA PCR C. pneumoniae DNA (PCR) Coronavirus OC43 (PCR) Coronavirus HKU1 (PCR) Coronavirus 229E (PCR) SARS-CoV-2 (PCR) Coronavirus NL63 (PCR) Human Metapneumovir PCR Influenza Type A (PCR) Influenza Type B (PCR) M. pneumoniae (PCR) Parainfluenza 1 (PCR) Parainfluenza 2 (PCR) Parainfluenza 3 (PCR) Parainfluenza 4 (PCR) RSV (PCR) Entero/Rhino (PCR) 04/13/24 20:25 WBC RBC Hgb Hct MCV MCH MCHC RDW Std Deviation RDW Coeff of Syd Plt Count MPV Immature Gran % (Auto) Neut % (Auto) Lymph % (Auto) [place] % (Auto) Eos % (Auto) Baso % (Auto) Neut # (Auto) Lymph # (Auto) [place] # (Auto) Eos # (Auto) Baso # (Auto) Immature Gran # (Auto) PT INR APTT PTT Ratio Sodium Potassium Chloride Carbon Dioxide Anion Gap BUN Creatinine Est Cr Clr Drug Dosing eGFR BUN/Creatinine Ratio Glucose POC Glucose 172 H Estimat Average Glucose Hemoglobin A1c Calcium Magnesium Total Bilirubin AST ALT Alkaline Phosphatase Troponin I High Sens Total Protein Albumin Globulin Albumin/Globulin Ratio Triglycerides Cholesterol VLDL Cholesterol, Calc HDL Cholesterol Cholesterol/HDL Ratio TSH Adenovirus (PCR) B. pertussis DNA (PCR) B.parapertussis DNA PCR C. pneumoniae DNA (PCR) Coronavirus OC43 (PCR) Coronavirus HKU1 (PCR) Coronavirus 229E (PCR) SARS-CoV-2 (PCR) Coronavirus NL63 (PCR) Human Metapneumovir PCR Influenza Type A (PCR) Influenza Type B (PCR) M. pneumoniae (PCR) Parainfluenza 1 (PCR) Parainfluenza 2 (PCR) Parainfluenza 3 (PCR) Parainfluenza 4 (PCR) RSV (PCR) Entero/Rhino (PCR) Diagnostic Findings MRI brain negative for acute or subacute CVA Echo - normal EF, borderline LVH, no valvular disease, no PFO PG Care Time/CCT Total # of Minutes Spent Total Time Spent with Patient: Total time spent is greater than 50% in coordination of care (as documented) at patient's floor/unit and/or counseling patient: Coding Level of Care Code 41257 SUB INP/OBS CARE 3/50MIN Diagnoses TIA (transient ischemic attack) G45.9 Uncontrolled type 2 diabetes mellitus with hyperglycemia E11.65 Hypertensive emergency I16.1 Dizziness R42 Hypertension I10 Intellectual disability F79 Hyperlipidemia E78.5 Fall W19.XXXA Morbid obesity with BMI of 45.0-49.9, adult E66.01; Z68.42
[2024-04-13] MEDS: MECLIZINE 12.5 MG TAB PO SCH (17:38)
[2024-04-13] MEDS: METOPROLOL TARTRATE 50 MG TAB PO SCH (21:16)
[2024-04-14 06:38] LABS: Creatinine Clr Calc Pharmacy 26.3 ml/min; Potassium 3.8 mmol/L (3.5-5.1)
[2024-04-14] MEDS ORDERED: EMPAGLIFLOZIN 10 MG TAB PO SCH (12:45)
[2024-04-14] MEDS: PANTOprazole 40 MG TAB PO STA (17:04)
--- NOTE | 2024-04-14 19:23 | Hospitalist Progress Note ---
Date of Service April 14, 2024 Assessment & Plan (1) TIA (transient ischemic attack): Plan: clinical picture most c/w TIA had had transient expressive aphasia & facial droop per bystanders symptoms/signs resolved MRI brain negative for stroke localization - MCA territory? CTA head/neck negative tele thus far w/o a.fib or a.flutter echo normal; no PFO, no source of embolus small vessel TIA?? other? unfortunately it appears she is statin intolerant attempts to start statin this admission have led to dizziness which she had years ago when she attempted a statin then consider zetia consider Repatha cont asa/plavix x 21 days; then asa 81mg daily alone thereafter for secondary prevention Rx the diabetes (2) Uncontrolled type 2 diabetes mellitus with hyperglycemia: Plan: hba1c 8.2% c/w T2DM consider once daily metformin consider once daily Jardiance BSGs acceptable while here thus far (3) Hypertensive emergency: Plan: presented with systolic BPs in the 220s and 230s this was in the setting of a TIA BPs have gradually improved but still remain quite high was started on metoprolol 25mg BID titrate to 50mg BID if needs additional BP control consider low-dose amlodipine (was on such in the past) or ARB (4) Dizziness: Plan: side effect from statin? due to TIA? due to uncontrolled HTN? orthostatic BPs negative does have horizontal nystagmus so cannot rule out inner ear issue started meclizine 12.5mg TID dizziness resolved today (5) Hypertension: Plan: see above (6) Intellectual disability: Plan: known diagnosis but able to live independently (7) Hyperlipidemia: Plan: likely statin intolerant dizziness experienced with prior statin trial years ago, and again this admission consider zetia consider Repatha consider dedicated triglyceride lowering agent (8) Fall: Plan: after attempting to get up OOB by herself on 04/13/24 experienced dizziness which likely led to the fall (orthostatics negative) fortunately no specific injury seen on exam at that time fall precautions PT, OT (9) Morbid obesity with BMI of 45.0-49.9, adult: Plan: BMI 47 (10) Hypercalcemia: Plan: total calcium level 10.5 upon presentation normal at 9 today did not require any intervention suspect 2nd to Rolaids (calcium carbonate) - takes daily at home and quite frequently stop Rolaids use monitor Ca level periodically (11) GERD (gastroesophageal reflux disease): Plan: daily GERD symptoms frequent calcium carbonate usage for such would benefit from EGD as outpatient start PPI - protonix 40mg daily she is agreeable Plan DVT proph - add lovenox tomorrow if she stays beyond tomorrow PT, OT jackelynals appreciated brother updated at bedside home tomorrow if BPs are reasonably controlled ? Admission and Anticipated Discharge Date Admission Date: April 12, 2024 Subjective tele overnight wnl during the visit her brother was present I noticed during rounds patient had a bottle of Rolaids at bedside she & her brother report that she takes several Rolaids each day for daily heartburn symptoms she has had GERD and other GI upset for many years has never had EGD has never been on PPI we discussed that her calcium level was high upon admission - Rolaids may be the culprit if she is taking numerous doses daily discussed starting PPI & stopping Rolaids dizziness/vertigo resolved feels good otherwise Review of Systems Review of Systems: CV - no chest pain, no orthopnea pulm - no dyspnea or FAUST GI - no pain, but frequent heartburn Physical Exam Physical Exam: gen - NAD, lying comfortably in bed neck - no JVD heart - RRR, s1 s2, no murmur lungs - CTA b/l abd - soft NT ND BS+ ext - no edema, pulses 2+ b/l neuro - no facial droop; speech clear/fluent Results & Data Results & Data Vital Signs (Past 12 Hours) Vital Signs Temp Pulse Resp BP Pulse Ox O2 Del Method 04/14/24 15:36 36.9 C 76 18 151/84 H 95 Room Air 04/14/24 11:47 37.0 C 66 18 165/85 H 95 Room Air Laboratory Results Laboratory Results - last 24 hr 04/13/24 04/14/24 04/14/24 20:25 05:50 07:53 Sodium 138 Potassium 3.8 Chloride 103 Carbon Dioxide 27 Anion Gap 8 BUN 26 H Creatinine 1.13 Est Cr Clr Drug Dosing 26.3 eGFR 50.74 BUN/Creatinine Ratio 23.0 H Glucose 155 H POC Glucose 172 H 155 H Calcium 9.0 Vitamin B12 345 04/14/24 04/14/24 12:22 16:57 Sodium Potassium Chloride Carbon Dioxide Anion Gap BUN Creatinine Est Cr Clr Drug Dosing eGFR BUN/Creatinine Ratio Glucose POC Glucose 150 H 137 H Calcium Vitamin B12 PG Care Time/CCT Total # of Minutes Spent Total Time Spent with Patient: Total time spent is greater than 50% in coordination of care (as documented) at patient's floor/unit and/or counseling patient: Coding Level of Care Code 86692 SUB INP/OBS CARE 2/35MIN Diagnoses TIA (transient ischemic attack) G45.9 Uncontrolled type 2 diabetes mellitus with hyperglycemia E11.65 Hypertensive emergency I16.1 Dizziness R42 Hypertension I10 Intellectual disability F79 Hyperlipidemia E78.5 Fall W19.XXXA Morbid obesity with BMI of 45.0-49.9, adult E66.01; Z68.42 Hypercalcemia E83.52 GERD (gastroesophageal reflux disease) K21.9
[2024-04-15] MEDS: hydrALAZINE HCL 20 MG/ML VIAL IV ONE ×2 (00:10→01:28)
[2024-04-15] MEDS: LABETALOL HCL IV 5 MG/ML 20ML IV STA (04:34)
[2024-04-15] MEDS: PANTOprazole 40 MG TAB PO SCH (08:49)
[2024-04-15 09:48] LABS: BUN Creatinine Ratio 29.8 (10-20); Calcium 8.6 mg/dl (8.6-10.3); Creatinine Clr Calc Pharmacy 28.7 ml/min; Potassium 3.7 mmol/L (3.5-5.1)
[2024-04-15] MEDS: amLODIPine BESYLATE 5 MG TAB PO SCH (11:07)
--- NOTE | 2024-04-15 16:32 | Discharge Summary ---
Discharge Summary Date of Service date of admission - April 12, 2024 date of discharge - April 15, 2024 Principal Dx & Hospital Course #1 = Principal Diagnosis (1) TIA (transient ischemic attack): patient presented with transient expressive aphasia & facial droop per bystanders symptoms/signs resolved MRI brain negative for stroke thus, clinical picture most c/w a TIA CTA head/neck negative telemetry w/o a.fib or a.flutter echo normal; no PFO, no source of embolus small vessel TIA?? other? unfortunately it appears she is statin intolerant attempts to start statin this admission led to immediate dizziness/vertigo this is the 2nd time in which she had dizziness taking a statin (had same side effects years ago) previous LDL was 88 in 2023 could consider Zetia could consider Repatha defer to outpatient providers seen by [facility] --> they advised DAPT with asa/plavix x 21 days; then asa 81mg daily alone thereafter for secondary prevention seen by PT/OT - cleared for home treat other TIA/stroke risk factors including T2DM (2) Uncontrolled type 2 diabetes mellitus with hyperglycemia: Hba1c 8.2% c/w T2DM in the past she has had difficulties taking certain oral diabetic agents recommended checking BSGs at least daily and following up with her PCP for this glucometer testing supplies prescribed at discharge could consider once daily metformin could consider once daily Jardiance but again defer to outpatient providers (3) Hypertensive emergency: presented with systolic BPs in the 220s and 230s this was in the setting of a TIA BPs gradually improved while here was started on metoprolol 25mg BID ultimately changed to metoprolol succinate 50mg daily she will also continue on losartan 25mg daily (4) Dizziness: side effect from statin? due to TIA? due to uncontrolled HTN? orthostatic BPs negative does have horizontal nystagmus so cannot rule out inner ear issue started meclizine 12.5mg TID statin was stopped dizziness resolved at discharge will keep off statin therapy and she was sent home with meclizine for prn use (5) Hypertension: see above (6) Intellectual disability: known diagnosis but fortunately able to live independently (7) Hyperlipidemia: likely statin intolerant dizziness experienced with prior statin trial years ago, and again this admission consider Zetia consider Repatha consider dedicated triglyceride lowering agent as her triglycerides were 576 this admission HDL on lipid panel was 51 LDL could not be calculated due to the high triglycerides will need close f/u for this issue (8) Fall: had such during her hospital stay had a fall after attempting to get up OOB by herself on 04/13/24 experienced dizziness/vertigo which likely led to the fall (orthostatics were negative) fortunately she had no specific injury from the fall despite the fall she was cleared for home by PT/OT as her dizziness fully resolved with statin discontinuation & meclizine (9) Morbid obesity with BMI of 45.0-49.9, adult: BMI 47 (10) Hypercalcemia: total calcium level 10.5 upon presentation calcium level normalized to 8.6 without any intervention suspect 2nd to Rolaids (calcium carbonate) - takes daily at home and quite frequently for GERD advised to STOP Rolaids use monitor Calcium level periodically (11) GERD (gastroesophageal reflux disease): patient reported daily GERD symptoms for many years frequent calcium carbonate usage for such started PPI - protonix 40mg daily recommend f/u with GI as outpatient for consideration of EGD Notes For Next Care Provider strongly consider GI referral for EGD check BSGs at least once daily Medication Changes From Visit aspirin 81mg daily - likely indefinitely plavix 75mg daily x 21 days then stop losartan 25mg HS meclizine 12.5mg TID prn metoprolol succinate 50mg qam pantoprazole 40mg daily Admission HPI Per Admitting Provider 74-year-old female around 1:00 this afternoon when her cleaning lady came she could not speak with her. She knew what she wanted to say but could not get any words out. The cleaning lady in combination with her brother also thought there was a facial droop. Patient was brought to the ER for further evaluation and treatment was initiated as a stroke alert. In the emergency department she was found to be quite hypertensive to 38 systolically. She did receive a dose of labetalol x [address] of the head and CTA of the head and neck were all negative for acute or critical findings. The patient had a consultation with telestroke on-call from [facility]. Recommending admission for stroke workup. Her NIH is now 0. Her symptoms are completely resolved. They recommended loading the patient with Plavix 300 mg and continuing 81 mg of aspirin daily. These therapies were provided in the ER. Recall admit the patient for TIA versus CVA. Again currently the patient's NIH is currently 0. The patient's never had any history of cardiac disease or cerebrovascular disease. Her only past medical history is really hypertension, GERD, "prediabetes" not currently treated. As well as some history of some chronic neck pain. And hyperlipidemia which is un treated. Discharge Exam gen - NAD, lying comfortably in bed eyes - PERRL, resolving nystagmus with fast component to the left neck - no JVD heart - RRR, s1 s2, no murmur lungs - CTA b/l abd - soft NT ND BS+ ext - no edema, pulses 2+ b/l neuro - no facial droop; speech clear/fluent; strength 5/5 x 4 exts Discharge Plan Discharge Items Patient Disposition: Home - Home Health Services Reason For Visit: ?TIA Discharge Diagnosis: 1. TIA (Transient ischemic attack) 2. Uncontrolled high blood pressure - improving 3. Type 2 diabetes 4. Severe GERD (reflux disease) 5. Elevated calcium level - due to frequent use of Rolaids - calcium level now normal 6. High cholesterol Activity: As commented below Activity Comment: plan to take it easy for the next 4-5 days then resume normal activity Non-emergency contact: Primary Care Provider Call non-emergency contact if: you have any medication questions and your symptoms worsen Follow-up/Referrals: Manda Garcia, [Primary Care Provider] - (within 4-5 days ) Diet: Carb Consistent or DM2 Addtl Attending Provider Instructions: Ms Calhoun, You were hospitalized after having had a "TIA" event. TIA stands for "transient ischemic attack." See handout. TIA is when someone has a neurological symptom or set of symptoms that typically come on suddenly then resolve over minutes or several hours. It is not the same thing as a stroke. However, TIA is a risk factor for stroke. Your TIA caused facial drooping and difficulty speaking. MRI brain was done and this did NOT show a stroke. You were seen by neurology and they recommended the following - * take a baby aspirin 81mg daily indefinitely. This is for prevention of additional TIA events and stroke. * take clopidogrel 75mg once daily x 18 additional days then STOP. This, too, is for prevention of TIA & stroke -- but the clopidogrel is for short-term use only. * consider taking something for your cholesterol. Your cholesterol is very high. High cholesterol is a risk factor for stroke and heart attack. Please talk to your family doctor about other medicines available to take for high cholesterol (you had dizziness with the "statin" drugs). In addition we added this medicine for your blood pressure - * metoprolol succinate 50mg once daily every morning * continue taking losartan 25mg once daily for blood pressure as well (you should already have this at home) For severe heartburn please do the following - * TAKE pantoprazole 40mg once daily each morning * STOP taking Rolaids on a daily basis as this medicine caused your calcium level to go up high; you can use it sparingly every now and then if needed, but please stop the daily use of it See handouts on reflux disease. Check your blood sugar once daily for your diabetes. Write these numbers down in a notebook and show them to your family doctor. You may have to go on medicine for your diabetes in the future if they run high. Finally, for any dizziness or vertigo (spinning sensation/balance problem), you can take - * meclizine 12.5mg every 8 hours as needed Follow-up - see your family doctor this week Return to [facility] if - * you have symptoms or signs of another TIA event or stroke (see details below) * you have severe headache * you have shortness of breath * you have chest pains * you have severe dizziness or vertigo * any other concerns It was our pleasure to care for you! -Dr Nava Waddell Sheet Folder Provider Instructions: Risk Factors for TIA & Stroke: You can reduce your chances of stroke by working with your medical provider to adopt a healthy lifestyle. Some specific ways to lower your chance of stroke are: * If you are a smoker, now is the time to stop smoking cigarettes * If you are diabetic, improve the control of your blood sugars * Avoid excessive amounts of alcohol * Control high blood pressure * Lose weight if you are overweight * Be sure to lead an active lifestyle * Eat a healthy diet low in salt, cholesterol and fat You should know about other risk factors for stroke that you are unable to control. These include: * Age 55 years or older * Male gender * Certain racial groups: , or / * Family History of Stroke, Mini stroke or Heart Attack * Sickle Cell Disease Who to Call and When: Medical Emergencies: Call 911 immediately if you experience any of the following warning signs and symptoms of Stroke: * Sudden numbness or weakness of the face, arm or leg, especially on one side of the body * Sudden confusion, trouble speaking or understanding * Sudden trouble seeing in one or both eyes * Sudden trouble walking, dizziness, loss of balance or coordination * Sudden severe headache with no cause Do not delay calling 911 if you experience any warning signs or symptoms of a stroke. Delay in seeking medical attention may affect what treatments can be given to you. . Pending Studies at Discharge: No Stand-Alone Forms: My [facility] [address], Smoking Cessation, Medications to Prevent Stroke Medications and DC Order Prescriptions: New meclizine 12.5 mg Tablet 12.5 mg PO TID PRN (Reason: dizziness/vertigo) Qty: 20 0RF clopidogrel 75 mg Tablet 75 mg PO QAM 18 Days Qty: 18 0RF Rx Instructions: for prevention of TIA/stroke aspirin 81 mg Tablet,Delayed Release (Dr/Ec) 81 mg PO QAM Qty: 90 3RF Rx Instructions: for prevention of TIA/stroke pantoprazole 40 mg Tablet,Delayed Release (Dr/Ec) 40 mg PO QAM Qty: 30 5RF Rx Instructions: for heartburn metoprolol succinate 50 mg tablet extended release 24 hr 50 mg PO QAM Qty: 30 5RF Rx Instructions: for high blood pressure (DME) blood-glucose meter Misc See Rx Instructions .Route Qty: 1 0RF Rx Instructions: As directed (DME) OneTouch Verio test strips Strip See Rx Instructions .Route Qty: 100 1RF Rx Instructions: Check blood sugars 1x/day (DME) lancets 33 gauge misc See Rx Instructions .Route Qty: 100 1RF Rx Instructions: Check blood sugars 1x/day Continued losartan 25 mg tablet 25 mg PO HS Qty: 0 0RF Rx Instructions: for high blood pressure Discharge Orders: Discharge Order (Routine); Ordered 04/15/24 Ordered By: Andrew George/Other Patient Handouts: What Is GERD?, What Is a TIA?, Tips to Control Acid Reflux, DASH Plan Eat Heart Healthy Food Admission Data Admit Date/Time: 04/12/24 17:19 Attending Provider: Andrew Vick Admit Provider: Stevan Zuluaga Primary Care Provider: Manda Garcia Other Providers: Stevan Zuluaga; Elver Vega; [facility],Home Healthcare Other Interventions: Discharge Summary Assessment (RN) Last Done: 04/15/24 16:01 Hospital Stay Data Consultations [facility] PT, OT Speech therapy Procedures Performed Echocardiogram: EF 60-65% no LV wall motion abnormalities no PFO/no shunt normal valve function Diagnostic Imagining Performed Chest X-Ray 04/12/24 15:28 EXAM: XR chest 1V portable CLINICAL HISTORY: NEURO DEFICIT, ACUTE STROKE SUSPECTED BRM. TECHNIQUE: An X-ray image of the chest is obtained in AP projection. COMPARISON: No prior studies are available for comparison. FINDINGS: Pulmonary Parenchyma: No evidence of consolidation, collapse, or focal opacities. No pulmonary nodules are identified. No evidence of pleural effusion or pleural thickening. Heart and Mediastinum: Despite portable projection, there is a normal configuration of the mediastinum and the cardiac size is normal. Bony Thorax: Bony thorax appears intact without fractures or deformities. Soft Tissues: Soft tissues overlying the chest wall are unremarkable. Cardiac monitoring electrodes. IMPRESSION: No acute cardiopulmonary abnormalities. Normal chest radiograph. Electronically signed by Faith Roque 04-12-2024 5:[address] 04/12/24 15:28 CT OF THE HEAD WITHOUT CONTRAST CLINICAL HISTORY: neuro deficit, acute stroke suspected COMPARISON STUDY: Head CT December 10, 2010. MRI of the brain December 10, 2010. TECHNIQUE: Helical axial images of the head were obtained without IV contrast. Automated exposure control was utilized for the study. A dose lowering technique was utilized adhering to the principles of ALARA. FINDINGS: No acute intracranial hemorrhage, midline shift or mass effect is present. Mild ventricular dilatation is likely due to central atrophy. White matter hypodense foci favor small vessel disease. The basal cisterns are patent. No extra-axial collections are present. There are no findings to suggest acute dural sinus thrombosis or acute territorial infarct. No significant calvarial abnormalities are present. Visualized portions of the sinuses and mastoid air cells are clear. IMPRESSION: No acute intracranial findings. ACT 112: Negative or not required by law. Electronically signed by: Italo Amador M.D. 04/12/2024 4:05 PM Head CTA 04/12/24 15:28 CT angio head w con CLINICAL HISTORY: neuro deficit, acute stroke suspected TECHNIQUE: CT angiography of the head was performed following intravenous administration of iodinated contrast. Coronal and sagittal MIPS were obtained from the axial data set and were submitted for review. Automated dose lowering techniques and/or adjustment according to patient size were utilized for this examination. All measurements were calculated based on NASCET criteria. Comparison: None available at the time of this dictation. FINDINGS: CTA Head: The anterior and posterior cerebral circulations are patent. No hemodynamically significant stenosis, aneurysm, dissection, or arteriovenous malformation is shown. IMPRESSION: No occlusion, hemodynamically significant stenosis, aneurysm, dissection, or arteriovenous malformation in the major intracranial arteries. Assessment of stenosis of the internal carotid arteries is based on NASCET criteria. ACT 112: Negative or not required by law. Electronically signed by: Shabbir Shaikh M.D. 04/12/2024 4:02 PM Neck CTA 04/12/24 15:28 CT ANGIOGRAPHY OF THE NECK WITH CONTRAST CLINICAL HISTORY: neuro deficit, acute stroke suspected COMPARISON STUDY: Carotid ultrasound December 10, 2010. Technique: CT angiography of the carotid and vertebral arteries was obtained using Optiray and 3D reconstruction on an independent workstation. NASCET criteria was utilized. Automated exposure control was utilized for the study. A dose lowering technique was utilized adhering to the principles of ALARA. CT DOSE: 2010.51 mGy.cm Findings: Please note that the CTA of the head and the head CT will be reported separately. Visualized portions of the lung apices are unremarkable. There is no cervical lymphadenopathy. There are no cervical spine fractures. The bilateral common carotid, cervical internal carotid and vertebral arteries are patent. Incidental note is made of retropharyngeal carotids. There are no stenoses or dissections within the nome vessels of the neck. There is mild atherosclerotic plaque within the right carotid bifurcation without stenosis. There is no aneurysm within the neck. IMPRESSION: No stenosis or dissection within the bilateral common carotid, cervical internal carotid or vertebral arteries. ACT 112: Negative or not required by law. Electronically signed by: Italo Amador M.D. 04/12/2024 4:11 PM Brain MRI 04/12/24 17:13 EXAMINATION: MRI brain without contrast CLINICAL HISTORY: Stroke protocol left-sided facial weakness PRIORS: None TECHNIQUE: Multiplanar multisequence imaging was obtained through the brain without the use of intravenous contrast. FINDINGS: Mild parenchymal volume loss is noted. Appropriate vance-white differentiation is seen. No restricted diffusion to suggest a recent infarction. No intraparenchymal blood products, ventriculomegaly or edema. Normal flow-voids demonstrated on T2 weighted imaging. Multiple scattered hyperintensities present within the deep white matter likely representing small vessel occlusive disease. Cerebellar tonsils are not low lying. IMPRESSION: No MRI evidence of an acute intracranial abnormality. Electronically signed by Alejandra Kapoor 04-12-2024 7:19 PM Pending Results Patient Have Any Pending Studies at Discharge: No Discharge Instructions Given to Patient (Per Discharging Provider) Ms Calhoun, Yasir were hospitalized after having had a "TIA" event. TIA stands for "transient ischemic attack." See handout. TIA is when someone has a neurological symptom or set of symptoms that typically come on suddenly then resolve over minutes or several hours. It is not the same thing as a stroke. However, TIA is a risk factor for stroke. Your TIA caused facial drooping and difficulty speaking. MRI brain was done and this did NOT show a stroke. You were seen by neurology and they recommended the following - * take a baby aspirin 81mg daily indefinitely. This is for prevention of additional TIA events and stroke. * take clopidogrel 75mg once daily x 18 additional days then STOP. This, too, is for prevention of TIA & stroke -- but the clopidogrel is for short-term use only. * consider taking something for your cholesterol. Your cholesterol is very high. High cholesterol is a risk factor for stroke and heart attack. Please talk to your family doctor about other medicines available to take for high cholesterol (you had dizziness with the "statin" drugs). In addition we added this medicine for your blood pressure - * metoprolol succinate 50mg once daily every morning * continue taking losartan 25mg once daily for blood pressure as well (you should already have this at home) For severe heartburn please do the following - * TAKE pantoprazole 40mg once daily each morning * STOP taking Rolaids on a daily basis as this medicine caused your calcium level to go up high; you can use it sparingly every now and then if needed, but please stop the daily use of it See handouts on reflux disease. Check your blood sugar once daily for your diabetes. Write these numbers down in a notebook and show them to your family doctor. You may have to go on medicine for your diabetes in the future if they run high. Finally, for any dizziness or vertigo (spinning sensation/balance problem), you can take - * meclizine 12.5mg every 8 hours as needed Follow-up - see your family doctor this week Return to [facility] if - * you have symptoms or signs of another TIA event or stroke (see details below) * you have severe headache * you have shortness of breath * you have chest pains * you have severe dizziness or vertigo * any other concerns It was our pleasure to care for you! -Dr Vick Total Time Total Time Spent Total Time Spent (In Minutes): 45 Coding Level of Care Code 52751 INP/OBS DISCH >30 MIN Diagnoses TIA (transient ischemic attack) G45.9 Uncontrolled type 2 diabetes mellitus with hyperglycemia E11.65 Hypertensive emergency I16.1 Dizziness R42 Hypertension I10 Intellectual disability F79 Hyperlipidemia E78.5 Fall W19.XXXA Morbid obesity with BMI of 45.0-49.9, adult E66.01; Z68.42 Hypercalcemia E83.52 GERD (gastroesophageal reflux disease) K21.9
== END 2024-04-15 17:22 | disposition home health service (06) | DRG 69 ==
LOC: ED 15:02 → SUATTDRO 17:19 → 4W 17:19 → INTOOBSV 17:19 → 4W 21:38

== ENCOUNTER 2024-05-10 17:59 | Inpatient (IN) ==
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
[2024-05-10 18:43] LABS: Appearance Urine Cloudy (Clear); Bacteria Urine Automated 2+ (None Seen); Bilirubin Urine Negative (Negative); Blood Urine Negative (Negative); Color Urine Dark Yellow; Glucose Urine UA Negative (Negative); Hyaline Casts Urine Present /lpf (None Presnt); Ketones Urine Trace (Negative); Leukocyte Esterase Urine 1+ (Negative); Nitrite Urine Negative (Negative); Protein Urine Negative (Negative); RBC Urine Automated 0-2 /hpf (0-2); Specific Gravity Urine 1.024 (1.000-1.030); Urobilinogen Urine Negative (Negative)
[2024-05-10 18:54] LABS: Basophils # (auto) 0.03 K/uL (0.00-0.20); Basophils % (auto) 0.3 %; Hematocrit (blood only) 39.5 % (37.0-47.0); Hemoglobin 13.1 g/dl (12.0-16.0); Immature Granulocytes # (auto) 0.03 K/uL (0.01-0.20); Immature Granulocytes % (auto) 0.3 %; Lymphocytes # (auto) 2.87 K/uL (1.20-3.40); Lymphocytes % (auto) 28.4 %; Mean Corpuscular Hemoglobin 29.4 pg (25.0-34.0); Mean Corpuscular Hgb Conc 33.2 g/dL (32.0-36.0); Mean Corpuscular Volume 88.6 fL (80.0-100.0); Mean Platelet Volume 10.2 fL (9.4-12.4); Monocytes # (auto) 0.66 K/uL (0.11-0.59); Monocytes % (auto) 6.5 %; Neutrophils # (auto) 6.41 K/uL (1.40-6.50); Neutrophils % (auto) 63.5 %; Platelet Count 309 K/uL (130-400); RDW Coefficient of Variation 13.7 % (11.5-14.5); RDW Standard Deviation 44.1 fL (36.4-46.3); Red Blood Count 4.46 M/uL (4.20-5.40)
[2024-05-10] MEDS: cefTRIAXone SODIUM 2,000 MG/50 ML BAG IV STA (19:07)
[2024-05-10 19:11] LABS: Albumin Globulin Ratio 1.2 (0.9-2); Albumin Level 4.3 gm/dl (3.4-5.0); BUN Creatinine Ratio 20.7 (10-20); Bilirubin,Total 0.5 mg/dl (0.2-1.0); Calcium 9.7 mg/dl (8.6-10.3); Creatinine Clr Calc Pharmacy 31.5 ml/min; Globulin 3.7 gm/dl (2.5-4.0); Potassium 3.9 mmol/L (3.5-5.1)
[2024-05-10 19:13] LABS: Influenza A virus by PCR Negative (Neg); Influenza B virus by PCR Negative (Neg); RSV by PCR Negative (Neg); SARS CoV2 RNA(COVID-19) Ceph NEGATIVE (Negative)
[2024-05-10 19:15] LABS: Troponin I High Sensitivity 5.4 pg/ml (0-14)
[2024-05-10 19:24] LABS: Thyroid Stimulating Hormone 2.074 uIu/ml (0.300-4.500)
[2024-05-10 19:25] LABS: INR 0.9 (0.9-1.1); Partial Thromboplastin Time 26 Seconds (21-31); Prothrombin Time 10.2 Seconds (9.0-12.0)
[2024-05-10] MEDS: SODIUM CHLORIDE 0.9% 500 ML IV ONE (19:37)
--- NOTE | 2024-05-10 19:44 | CT Scan Report ---
Exam(s): CT HEAD Without Contrast EXAM: CT Head Without Intravenous Contrast CLINICAL HISTORY: Reason for exam: weak. TECHNIQUE: Axial computed tomography images of the head/brain without intravenous contrast. CTDI is 35.92 mGy and DLP is 547.75 mGy-cm. Automated exposure control was utilized for the study. A dose lowering technique was utilized adhering to the principles of ALARA. COMPARISON: 04/12/2024 FINDINGS: Brain: No intracranial hemorrhage, mass-effect, or cerebral edema. Atrophy and chronic microvascular ischemic changes. Chronic lacunar infarcts within the basal ganglia. Ventricles: Unremarkable. Bones/joints: Unremarkable. No fracture. Soft tissues: Unremarkable. Sinuses: No acute sinusitis. Mastoid air cells: Unremarkable as visualized. IMPRESSION: 1. No acute intracranial abnormality. Electronically signed by: Timothy Bentley MD 05/10/24 19:43 PM
--- NOTE | 2024-05-10 19:56 | XRay Report ---
Exam(s): XR CXR 1 VIEW EXAM: XR Chest, 1 View CLINICAL HISTORY: Reason for exam: weakness. TECHNIQUE: Frontal view of the chest. COMPARISON: 04/12/2024 FINDINGS: Lungs: No consolidation. No overt edema. Pleural space: No pleural effusion. No pneumothorax. Heart: Unremarkable. No cardiomegaly. IMPRESSION: No acute cardiopulmonary abnormality. Electronically signed by: Timothy Bentley MD 05/10/24 19:55 PM
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
[2024-05-10] MEDS ORDERED: ONDANSETRON INJ 2 MG/ML 2 ML VIAL IV PRN (20:59)
[2024-05-10] MEDS ORDERED: ACETAMINOPHEN 325 MG TAB PO PRN (20:59)
[2024-05-10] MEDS ORDERED: POLYETHYLENE (MIRALAX) 17 GM PACK PO PRN (20:59)
--- NOTE | 2024-05-10 22:15 | Magnetic Resonance Report ---
Exam(s): MRI HEAD Without Contrast EXAM: MR Head Without Intravenous Contrast CLINICAL HISTORY: Reason for exam: stroke-like symptoms. TECHNIQUE: Magnetic resonance images of the head/brain without intravenous contrast in multiple planes. COMPARISON: Head CT 05/10/2024 FINDINGS: Brain: Acute infarcts in the bilateral basal ganglia. No hemorrhagic conversion. Global parenchymal atrophy. Periventricular T2/flair hyperintensities favored to represent chronic microvascular ischemic changes. Ventricles: Unremarkable. No ventriculomegaly. Bones/joints: Unremarkable. No acute fracture. Sinuses: Unremarkable as visualized. No acute sinusitis. Mastoid air cells: Unremarkable as visualized. No mastoid effusion. Orbits: Unremarkable as visualized. IMPRESSION: Acute infarcts in the bilateral basal ganglia. No hemorrhagic conversion. Communications: Call Doctor Stroke Electronically signed by: Timothy Bentley MD 05/10/24 22:14 PM
[2024-05-10] MEDS: ASPIRIN 325 MG ECTAB PO ONE (23:06)
[2024-05-10] MEDS: SODIUM CHLORIDE 0.9% 1,000 ML IV SCH (23:06)
[2024-05-10] MEDS ORDERED: DEXTROSE 50% 50 ML SYRINGE IV PRN (23:32)
[2024-05-10] MEDS ORDERED: GLUCAGON FOR INJ 1 MG VIAL SQ PRN (23:32)
[2024-05-10] MEDS ORDERED: GLUCOSE 10 TAB/TUBE PO PRN (23:32)
[2024-05-10] MEDS ORDERED: GLUCOSE 40% GEL 15 GM TUBE PO PRN (23:32)
[2024-05-10] MEDS ORDERED: MECLIZINE 12.5 MG TAB PO PRN (23:32)
[2024-05-10] MEDS ORDERED: CARBOHYDRATES FOR HYPOGLYCEMIA PO PRN (23:32)
[2024-05-11 08:00] LABS: Hematocrit (blood only) 33.5 % (37.0-47.0); Hemoglobin 11.2 g/dl (12.0-16.0); Mean Corpuscular Hemoglobin 29.6 pg (25.0-34.0); Mean Corpuscular Hgb Conc 33.4 g/dL (32.0-36.0); Mean Corpuscular Volume 88.4 fL (80.0-100.0); Mean Platelet Volume 10.1 fL (9.4-12.4); Platelet Count 249 K/uL (130-400); RDW Coefficient of Variation 13.6 % (11.5-14.5); RDW Standard Deviation 44.2 fL (36.4-46.3); Red Blood Count 3.79 M/uL (4.20-5.40)
[2024-05-11 08:16] LABS: BUN Creatinine Ratio 19.6 (10-20); Calcium 8.7 mg/dl (8.6-10.3); Creatinine Clr Calc Pharmacy 41.1 ml/min; Potassium 3.5 mmol/L (3.5-5.1)
[2024-05-11] MEDS: INSULIN ASPART PER UNIT CHARGE SC SCH (08:22)
[2024-05-11] MEDS: CLOPIDOGREL BISULFATE 75 MG TAB PO SCH (09:35)
[2024-05-11] MEDS: ASPIRIN 81 MG ECTAB PO SCH (09:35)
[2024-05-11] MEDS: METOPROLOL SUCC 50MG EXT REL TAB PO SCH (09:36)
[2024-05-11] MEDS: LOSARTAN POTASSIUM 25 MG TAB PO SCH (09:36)
[2024-05-11] MEDS: PANTOprazole 40 MG TAB PO SCH (09:37)
[2024-05-11] MEDS: LANTUS PER UNIT CHARGE SQ SCH (09:43)
[2024-05-11] MEDS: ENOXAPARIN INJ 40 MG/0.4 ML SYR SQ SCH (09:43)
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
--- NOTE | 2024-05-11 13:36 | Hospitalist Progress Note ---
Date of Service May 11, 2024 Assessment & Plan (1) Acute CVA (cerebrovascular accident): Plan: Pt is a 74 yo female with PMH of IFG, anxiety, HTN, and HLD presenting d/t increasing weakness. Acute CVA - pt with recent hospital admission in early Apr with TIA (left sided facial droop, aphasia) which had resolved prior to discharge/shortly after discharge; ~10 days ago, pt's symptoms began again with increasing aphasia and shuffling gait MRI shows acute bilateral basal ganglia infarcts Patient had just been on dual antiplatelet agents aspirin and Plavix and was just switched back to aspirin only. Currently she had has been started on both aspirin and Plavix Neurology officially consulted Patient had had a complete stroke workup during her last hospitalization Although this appears to be mostly ischemic, an embolic phenomenon cannot be completely excluded This is most likely due to her uncontrolled medical conditions like diabetes, hypertension, hyperlipidemia with statin intolerance Given statin intolerance, she may benefit from Zetia. Will start today Allow permissive hypertension today PT/OT/speech therapy consulted Patient may need placement KIRILL - no hx of CKD; Cr 1.35 upon admission Resolved with hydration UTI - pt currently denying any urinary symptoms; however, pt with increased weakness/confusion - UA showing 1+ LE, 2+ bacteria, and neg nitrite; urine culture pending - s/p ceftriaxone 2g in ER; will continue HTN/HLD - continue losartan 25mg BID, ezetimibe 10 mg - pt will most likely need further medication to control her BP DM - last A1c 04/2023 8.2% - unclear if pt taking metformin at home or not - insulin glargine 8u BID, SSI GERD - continue home PPI - after 4-6 weeks of therapy, pt may trial off as an outpatient Diet: NPO until AM/further speech eval, IVF 80 mL/hr x1L Code: DNR/DNI VTE ppx: lovenox (2) KIRILL (acute kidney injury): (3) Acute UTI (urinary tract infection): (4) GERD (gastroesophageal reflux disease): (5) Hyperlipidemia: (6) Uncontrolled type 2 diabetes mellitus with hyperglycemia: (7) Hypertension: (2) KIRILL (acute kidney injury): (3) Morbid obesity with BMI of 45.0-49.9, adult: (4) Uncontrolled type 2 diabetes mellitus with hyperglycemia: (5) Acute UTI (urinary tract infection): (6) GERD (gastroesophageal reflux disease): (7) Hyperlipidemia: (8) Hypertension: Admission and Anticipated Discharge Date Admission Date: May 10, 2024 Subjective Patient was seen and examined at 10:55 AM. She said that she is still slurring her speech a little bit but overall feeling better. Review of Systems Review of Systems: All systems reviewed & are unremarkable except as noted in Subjective Physical Exam Physical Exam: General: Awake, conversant Heart: S1, S2/regular rate and rhythm, no murmur rubs or gallops Lungs: Clear to auscultation bilaterally. Normal effort Abdomen: Soft/nontender/nondistended. No hepatosplenomegaly Extremities: No clubbing/cyanosis. No edema Behavior: Appropriate, cooperative Results & Data Results & Data Vital Signs (Past 12 Hours) Vital Signs Temp Pulse Pulse Resp BP BP Pulse Ox 05/11/24 11:08 36.7 C 65 17 141/68 H 100 05/11/24 07:34 66 05/11/24 07:17 36.5 C 73 16 181/83 H 95 05/11/24 03:14 36.7 C 72 18 168/78 H 96 O2 Del Method 05/11/24 11:08 Room Air 05/11/24 07:34 05/11/24 07:17 Room Air 05/11/24 03:14 Room Air Laboratory Results Abnormal lab results 05/10/24 05/10/24 05/10/24 Range/Units 18:25 18:37 23:42 RBC (4.20-5.40) M/uL Hgb (12.0-16.0) g/dl Hct (37.0-47.0) % [place] # (Auto) 0.66 H (0.11-0.59) K/uL Chloride (98-107) mmol/L BUN 28 H (6-23) mg/dl Creatinine 1.35 H (0.6-1.2) mg/dl BUN/Creatinine Ratio 20.7 H (10-20) Glucose 122 H (70-99(Fasting)) mg/dl POC Glucose 115 H (70-99) mg/dl Urine Appearance Cloudy A (Clear) Urine Ketones Trace H (Negative) Ur Leukocyte Esterase 1+ H (Negative) Urine WBC (Auto) 6-10 H (0-5) /hpf U Hyaline Cast (Auto) 6-10 H (0-2) /lpf U Epithel Cells (Auto) 11-20 H (0-2) /hpf Urine Bacteria (Auto) 2+ H (None Seen) Hyaline Casts Present A (None Presnt) /lpf 05/11/24 05/11/24 05/11/24 Range/Units 07:03 07:38 11:12 RBC 3.79 L (4.20-5.40) M/uL Hgb 11.2 L (12.0-16.0) g/dl Hct 33.5 L (37.0-47.0) % [place] # (Auto) (0.11-0.59) K/uL Chloride 110 H (98-107) mmol/L BUN (6-23) mg/dl Creatinine (0.6-1.2) mg/dl BUN/Creatinine Ratio (10-20) Glucose 122 H (70-99(Fasting)) mg/dl POC Glucose 123 H 191 H (70-99) mg/dl Urine Appearance (Clear) Urine Ketones (Negative) Ur Leukocyte Esterase (Negative) Urine WBC (Auto) (0-5) /hpf U Hyaline Cast (Auto) (0-2) /lpf U Epithel Cells (Auto) (0-2) /hpf Urine Bacteria (Auto) (None Seen) Hyaline Casts (None Presnt) /lpf Diagnostic Findings Chest X-Ray 05/10/24 18:23 Exam(s): XR CXR 1 VIEW EXAM: XR Chest, 1 View CLINICAL HISTORY: Reason for exam: weakness. TECHNIQUE: Frontal view of the chest. COMPARISON: 04/12/2024 FINDINGS: Lungs: No consolidation. No overt edema. Pleural space: No pleural effusion. No pneumothorax. Heart: Unremarkable. No cardiomegaly. IMPRESSION: No acute cardiopulmonary abnormality. Electronically signed by: Timothy Bentley MD 05/10/24 19:[address] 05/10/24 18:23 Exam(s): CT HEAD Without Contrast EXAM: CT Head Without Intravenous Contrast CLINICAL HISTORY: Reason for exam: weak. TECHNIQUE: Axial computed tomography images of the head/brain without intravenous contrast. CTDI is 35.92 mGy and DLP is 547.75 mGy-cm. Automated exposure control was utilized for the study. A dose lowering technique was utilized adhering to the principles of ALARA. COMPARISON: 04/12/2024 FINDINGS: Brain: No intracranial hemorrhage, mass-effect, or cerebral edema. Atrophy and chronic microvascular ischemic changes. Chronic lacunar infarcts within the basal ganglia. Ventricles: Unremarkable. Bones/joints: Unremarkable. No fracture. Soft tissues: Unremarkable. Sinuses: No acute sinusitis. Mastoid air cells: Unremarkable as visualized. IMPRESSION: 1. No acute intracranial abnormality. Electronically signed by: Timothy Bentley MD 05/10/24 19:43 PM Brain MRI 05/10/24 21:07 CR Exam(s): MRI HEAD Without Contrast EXAM: MR Head Without Intravenous Contrast CLINICAL HISTORY: Reason for exam: stroke-like symptoms. TECHNIQUE: Magnetic resonance images of the head/brain without intravenous contrast in multiple planes. COMPARISON: Head CT 05/10/2024 FINDINGS: Brain: Acute infarcts in the bilateral basal ganglia. No hemorrhagic conversion. Global parenchymal atrophy. Periventricular T2/flair hyperintensities favored to represent chronic microvascular ischemic changes. Ventricles: Unremarkable. No ventriculomegaly. Bones/joints: Unremarkable. No acute fracture. Sinuses: Unremarkable as visualized. No acute sinusitis. Mastoid air cells: Unremarkable as visualized. No mastoid effusion. Orbits: Unremarkable as visualized. IMPRESSION: Acute infarcts in the bilateral basal ganglia. No hemorrhagic conversion. Communications: Call Doctor Stroke Electronically signed by: Timothy Bentley MD 05/10/24 22:14 PM PG Care Time/CCT Total # of Minutes Spent Total Time Spent with Patient: Total time spent is greater than 50% in coordination of care (as documented) at patient's floor/unit and/or counseling patient: Coding Level of Care Code 85319 SUB INP/OBS CARE 2/35MIN Diagnoses Acute CVA (cerebrovascular accident) I63.9 KIRILL (acute kidney injury) N17.9 Morbid obesity with BMI of 45.0-49.9, adult E66.01; Z68.42 Uncontrolled type 2 diabetes mellitus with hyperglycemia E11.65 Acute UTI (urinary tract infection) N39.0 GERD (gastroesophageal reflux disease) K21.9 Hyperlipidemia E78.5 Hypertension I10
--- NOTE | 2024-05-11 14:27 | Electrocardiogram Report ---
Test Reason : Blood Pressure : */* mmHG Vent. Rate : 94 BPM Atrial Rate : 94 BPM P-R Int : 152 ms QRS Dur : 68 ms QT Int : 366 ms P-R-T Axes : 45 3 42 degrees QTcB Int : 457 ms Normal sinus rhythm Minimal voltage criteria for LVH, may be normal variant ( R in aVL ) Borderline ECG When compared with ECG of 12-Apr-2024 15:52, No significant change was found Confirmed by Arjun Martins ([id number]) on 05/11/2024 2:27:20 PM Referred By: REFERRED SELF Confirmed By: Arjun Martins
[2024-05-11] MEDS: cefTRIAXone SODIUM 2,000 MG/50 ML BAG IV SCH (17:46)
--- NOTE | 2024-05-12 01:33 | Billing Data ---
Date of Service May 12, 2024 Coding Level of Care Code 28234 INT INP/OBS CARE
[2024-05-12] MEDS: EZETIMIBE 10 MG TAB PO SCH (07:48)
[2024-05-12] MEDS: amLODIPine BESYLATE 5 MG TAB PO SCH (10:14)
--- NOTE | 2024-05-12 12:54 | Hospitalist Progress Note ---
Date of Service May 12, 2024 Assessment & Plan (1) Acute CVA (cerebrovascular accident): Plan: Pt is a 74 yo female with PMH of IFG, anxiety, HTN, and HLD presenting d/t increasing weakness. Acute bilateral basal ganglia CVA - pt with recent hospital admission in early Apr with TIA (left sided facial droop, aphasia) which had resolved prior to discharge/shortly after discharge; ~10 days ago, pt's symptoms began again with increasing aphasia and shuffling gait MRI shows acute bilateral basal ganglia infarcts Patient had just been on dual antiplatelet agents aspirin and Plavix and was just switched back to aspirin only. Currently she had has been started on both aspirin and Plavix Neurology officially consulted Patient had had a complete stroke workup during her last hospitalization Although this appears to be mostly ischemic, an embolic phenomenon cannot be completely excluded This is most likely due to her uncontrolled medical conditions like diabetes, hypertension, hyperlipidemia with statin intolerance Given statin intolerance, she may benefit from Zetia. Started Zetia Blood pressure control more aggressively PT/OT/speech therapy consulted. Recommending rehab KIRILL - no hx of CKD; Cr 1.35 upon admission Resolved with hydration UTI - pt currently denying any urinary symptoms; however, pt with increased weakness/confusion Urine culture negative Discontinue ceftriaxone HTN/HLD - continue losartan 25mg BID, ezetimibe 10 mg -Patient was started on amlodipine 10 mg today for blood pressure control If blood pressure remains uncontrolled, may increase the dose of losartan further DM - last A1c 04/2023 8.2% - unclear if pt taking metformin at home or not - insulin glargine 8u BID, SSI GERD - continue home PPI - after 4-6 weeks of therapy, pt may trial off as an outpatient Code: DNR/DNI VTE ppx: lovenox (2) KIRILL (acute kidney injury): (3) Acute UTI (urinary tract infection): (4) GERD (gastroesophageal reflux disease): (5) Hyperlipidemia: (6) Uncontrolled type 2 diabetes mellitus with hyperglycemia: (7) Hypertension: Admission and Anticipated Discharge Date Admission Date: May 10, 2024 Subjective Patient was seen and examined at 9:30 AM. She was noted to be slightly confused. The nurse stated that the patient was more confused today than yesterday. Review of Systems Review of Systems: All systems reviewed & are unremarkable except as noted in Subjective Physical Exam Physical Exam: General: Awake, conversant. Pleasantly confused Heart: S1, S2/regular rate and rhythm, no murmur rubs or gallops Lungs: Clear to auscultation bilaterally. Normal effort Abdomen: Soft/nontender/nondistended. No hepatosplenomegaly Extremities: No clubbing/cyanosis. No edema Behavior: Appropriate, cooperative Results & Data Results & Data Vital Signs (Past 12 Hours) Vital Signs Temp Pulse Pulse Pulse Resp BP Pulse Ox 05/12/24 11:28 36.8 C 68 18 156/89 H 94 05/12/24 10:16 178/94 H 05/12/24 07:37 36.6 C 67 18 195/100 H 96 05/12/24 07:17 67 05/12/24 03:00 36.5 C 71 18 168/85 H 94 O2 Del Method 05/12/24 11:28 Room Air 05/12/24 10:16 05/12/24 07:37 Room Air 05/12/24 07:17 05/12/24 03:00 Room Air Laboratory Results Abnormal lab results 05/11/24 05/11/24 05/12/24 Range/Units 16:37 19:47 07:40 POC Glucose 115 H 125 H 108 H (70-99) mg/dl 05/12/24 Range/Units 11:38 POC Glucose 120 H (70-99) mg/dl PG Care Time/CCT Total # of Minutes Spent Total Time Spent with Patient: Total time spent is greater than 50% in coordination of care (as documented) at patient's floor/unit and/or counseling patient: Coding Level of Care Code 83294 SUB INP/OBS CARE 2/35MIN Diagnoses Acute CVA (cerebrovascular accident) I63.9 KIRILL (acute kidney injury) N17.9 Acute UTI (urinary tract infection) N39.0 GERD (gastroesophageal reflux disease) K21.9 Hyperlipidemia E78.5 Uncontrolled type 2 diabetes mellitus with hyperglycemia E11.65 Hypertension I10
[2024-05-12] MEDS: HALOPERIDOL LACTATE 5 MG/ML 1 ML VIAL IV STA (16:22)
[2024-05-12] MEDS: LOSARTAN POTASSIUM 50 MG TAB PO SCH (20:05)
[2024-05-12] MEDS: QUEtiapine FUMARATE 25 MG TABLET PO SCH (21:54)
--- NOTE | 2024-05-13 13:29 | Hospitalist Progress Note ---
Date of Service May 13, 2024 Assessment & Plan (1) Acute CVA (cerebrovascular accident): Plan: Pt is a 74 yo female with PMH of IFG, anxiety, HTN, and HLD presenting d/t increasing weakness. Acute bilateral basal ganglia CVA - pt with recent hospital admission in early Apr with TIA (left sided facial droop, aphasia) which had resolved prior to discharge/shortly after discharge; ~10 days ago, pt's symptoms began again with increasing aphasia and shuffling gait MRI shows acute bilateral basal ganglia infarcts Patient had just been on dual antiplatelet agents aspirin and Plavix and was just switched back to aspirin only. Currently she had has been started on both aspirin and Plavix Neurology officially consulted Patient had had a complete stroke workup during her last hospitalization Although this appears to be mostly ischemic, an embolic phenomenon cannot be completely excluded This is most likely due to her uncontrolled medical conditions like diabetes, hypertension, hyperlipidemia with statin intolerance Given statin intolerance, she may benefit from Zetia. Started Zetia Blood pressure fairly controlled today PT/OT/speech therapy consulted. Recommending rehab Acute metabolic encephalopathy Patient is slightly confused She was slightly agitated and her blood pressure was elevated I gave her a dose of Haldol during the day and Seroquel at bedtime Today she is much more calm and composed, although still confused This could be hospital-acquired delirium or related to the stroke. KIRILL - no hx of CKD; Cr 1.35 upon admission Resolved with hydration UTI - pt currently denying any urinary symptoms; however, pt with increased weakness/confusion Urine culture negative Discontinue ceftriaxone HTN/HLD - continue losartan 25mg BID, ezetimibe 10 mg -Patient was started on amlodipine 10 mg today for blood pressure control If blood pressure remains uncontrolled, may increase the dose of losartan further DM - last A1c 04/2023 8.2% - unclear if pt taking metformin at home or not - insulin glargine 8u BID, SSI GERD - continue home PPI - after 4-6 weeks of therapy, pt may trial off as an outpatient Code: DNR/DNI VTE ppx: jad Spoke to brother in detail multiple times during this hospital stay. Her b rubyer keeps asking about prognosis. In particular he wants to know what is the person that she will recover. I have been telling him that she had a stroke in time will tell how she recovers in the next few days at rehab. However he called the nurse and the case finishing machine adjuster, wanting to speak to the neurologist to know about her prognosis. A phone conversation with the neurologist may be arranged on a weekday. (2) KIRILL (acute kidney injury): (3) Acute UTI (urinary tract infection): (4) GERD (gastroesophageal reflux disease): (5) Hyperlipidemia: (6) Uncontrolled type 2 diabetes mellitus with hyperglycemia: (7) Hypertension: Admission and Anticipated Discharge Date Admission Date: May 12, 2024 Subjective Patient was seen and examined at 9:50 AM. Per nurse, patient is less confused today. She slept well overnight. Patient is still AO x 2. Denies any chest pain or shortness of breath. Review of Systems Review of Systems: All systems reviewed & are unremarkable except as noted in Subjective Physical Exam Physical Exam: General: Awake, conversant. Pleasantly confused Heart: S1, S2/regular rate and rhythm, no murmur rubs or gallops Lungs: Clear to auscultation bilaterally. Normal effort Abdomen: Soft/nontender/nondistended. No hepatosplenomegaly Extremities: No clubbing/cyanosis. No edema Behavior: Appropriate, cooperative Results & Data Results & Data Vital Signs (Past 12 Hours) Vital Signs Temp Pulse Pulse Pulse Resp BP Pulse Ox 05/13/24 11:14 36.7 C 66 16 128/85 95 05/13/24 08:08 69 05/13/24 07:55 58 L 05/13/24 07:22 36.6 C 75 16 135/80 96 05/13/24 07:15 05/13/24 03:26 36.5 C 75 16 124/75 95 O2 Del Method 05/13/24 11:14 Room Air 05/13/24 08:08 05/13/24 07:55 05/13/24 07:22 Room Air 05/13/24 07:15 Room Air 05/13/24 03:26 Room Air Laboratory Results Abnormal lab results 05/12/24 05/12/24 05/13/24 Range/Units 16:29 19:45 07:15 POC Glucose 127 H 114 H 111 H (70-99) mg/dl PG Care Time/CCT Total # of Minutes Spent Total Time Spent with Patient: Total time spent is greater than 50% in coordination of care (as documented) at patient's floor/unit and/or counseling patient: Coding Level of Care Code 10078 SUB INP/OBS CARE 2MIN Diagnoses Acute CVA (cerebrovascular accident) I63.9 KIRILL (acute kidney injury) N17.9 Acute UTI (urinary tract infection) N39.0 GERD (gastroesophageal reflux disease) K21.9 Hyperlipidemia E78.5 Uncontrolled type 2 diabetes mellitus with hyperglycemia E11.65 Hypertension I10
--- NOTE | 2024-05-14 21:20 | Hospitalist Progress Note ---
Date of Service May 14, 2024 Assessment & Plan (1) Acute CVA (cerebrovascular accident): (2) Hypertension: (3) Uncontrolled type 2 diabetes mellitus with hyperglycemia: (4) KIRILL (acute kidney injury): Plan Pt is a 74 yo female with PMH of TIA, DM2, anxiety, HTN, and HLD presenting d/t increasing weakness and slurred speech. 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 CTA head and neck from last admission negative. She was on DAPT x 3 weeks and then was back on aspirin only for the last week prior to admission Echocardiogram with bubble study from last admission negative for thrombus or PFO -Neurology consult appreciated-recommends DAPT again x 3 weeks, followed by Plavix monotherapy -Continue Zetia recently started as an outpatient-she is statin intolerant. Lipid panel here not checked-will check in the morning -HgbA1c 8.2%-could be better controlled-consider adding Jardiance in the setting of DM2 and cerebrovascular disease, continue home metformin after discharge -Needs improved BP control -PT/OT recommends rehab -Needs 30-day cardiac event monitor after discharge to look for occult atrial fibrillation #Acute metabolic encephalopathy Patient is slightly confused on 05/13 and 05/14, slightly paranoid. Received 1 dose of Haldol on 05/13 and started on Seroquel at bedtime on 05/13. Remains mildly confused. Could be hospital delirium -Continue supportive care -Continue Seroquel 25 Mg p.o. at bedtime -Continue to promote good sleep-wake cycles #HTN/HLD-blood pressures have been uncontrolled as noted above -added amlodipine 10 mg daily, continue Toprol-XL 50 mg daily, and increased losartan to 50 Mg p.o. twice daily-monitor BP #DM2- last A1c 04/2023 8.2%- unclear if pt taking metformin at home or not -Continue insulin glargine 8u BID, SSI -Should add on Jardiance after discharge given that she has cerebrovascular disease and DM2 #KIRILL- no hx of CKD; Cr 1.35 upon admission and resolved with hydration -Follow BMP #Abnormal urinalysis- pt denied any urinary symptoms; however, pt with increased weakness/confusion but urine culture negative and have since discontinued ceftriaxone #GERD - continue home PPI - after 4-6 weeks of therapy, pt may trial off as an outpatient DVT prophylaxis-SQ Lovenox Disposition-medically stable for discharge, awaiting rehab placement-insurance authorization pending at [facility] Admission and Anticipated Discharge Date Admission Date: May 12, 2024 Subjective Patient seems confused and is telling me about a man that she knows who is accusing her of being on her phone and she wonders how he knows that she is on her phone. Denies headache or chest pain, denies shortness of breath. Telemetry with normal sinus rhythm with rates in the 70s Physical Exam Constitutional: WD/WN, vitals as above Eyes: PERRL, conjunctivae normal, anicteric sclerae ENMT: external ear and nose normal, oropharynx normal Respiratory: normal respiratory effort, lungs clear to auscultation Cardiovascular: RRR, no murmur, no edema Neurologic: CN's II-XI intact bilaterally, deep tendon reflexes 2+ bilaterally (And 3+ in patellar bilaterally), + focal motor deficit (Very mild weakness in left wrist extension, otherwise 5/5 throughout) and + confused (Mild, paranoid) Speech / Cognition: normal speech and no expressive aphasia Results & Data Results & Data Vital Signs (Past 12 Hours) Vital Signs Temp Pulse Pulse Resp BP Pulse Ox O2 Del Method 05/14/24 20:03 36.9 C 76 16 138/68 97 Room Air 05/14/24 14:33 36.6 C 71 18 143/70 H 94 Room Air 05/14/24 13:59 70 05/14/24 11:18 36.5 C 79 18 160/100 H 96 Room Air Laboratory Results No labs for review PG Care Time/CCT Total # of Minutes Spent Total Time Spent with Patient: Total time spent is greater than 50% in coordination of care (as documented) at patient's floor/unit and/or counseling patient: Coding Level of Care Code 78665 SUB INP/OBS CARE 3/50MIN Diagnoses Acute CVA (cerebrovascular accident) I63.9 Hypertension I10 Uncontrolled type 2 diabetes mellitus with hyperglycemia E11.65 KIRILL (acute kidney injury) N17.9
[2024-05-14] MEDS: QUEtiapine FUMARATE 25 MG TABLET PO STA (22:42)
[2024-05-15 07:23] LABS: Basophils # (auto) 0.02 K/uL (0.00-0.20); Basophils % (auto) 0.3 %; Eosinophils # (auto) 0.23 K/uL (0.00-0.50); Eosinophils % (auto) 3.3 %; Hematocrit (blood only) 38.3 % (37.0-47.0); Hemoglobin 12.7 g/dl (12.0-16.0); Immature Granulocytes # (auto) 0.02 K/uL (0.01-0.20); Immature Granulocytes % (auto) 0.3 %; Lymphocytes # (auto) 2.63 K/uL (1.20-3.40); Lymphocytes % (auto) 37.5 %; Mean Corpuscular Hemoglobin 29.4 pg (25.0-34.0); Mean Corpuscular Hgb Conc 33.2 g/dL (32.0-36.0); Mean Corpuscular Volume 88.7 fL (80.0-100.0); Mean Platelet Volume 9.9 fL (9.4-12.4); Monocytes # (auto) 0.56 K/uL (0.11-0.59); Neutrophils # (auto) 3.56 K/uL (1.40-6.50); Neutrophils % (auto) 50.6 %; Platelet Count 294 K/uL (130-400); RDW Coefficient of Variation 13.6 % (11.5-14.5); RDW Standard Deviation 44.3 fL (36.4-46.3); Red Blood Count 4.32 M/uL (4.20-5.40); White Blood Count 7.02 K/ul (4.8-10.8)
[2024-05-15 07:45] LABS: Albumin Globulin Ratio 1.2 (0.9-2); Albumin Level 3.7 gm/dl (3.4-5.0); BUN Creatinine Ratio 20.5 (10-20); Bilirubin,Total 0.5 mg/dl (0.2-1.0); Calcium 9.6 mg/dl (8.6-10.3); Chol HDL Ratio 3.1 (0-5); Creatinine Clr Calc Pharmacy 35.8 ml/min; Globulin 3.1 gm/dl (2.5-4.0); Magnesium 2.1 mg/dl (1.7-2.4); Potassium 3.6 mmol/L (3.5-5.1); Total Protein 6.8 gm/dl (6.0-8.3)
[2024-05-15] MEDS: CHOLECALCIFEROL 25 MCG (1000 UNITS) TAB PO SCH (08:53)
[2024-05-15] MEDS: METOPROLOL SUCC 50MG EXT REL TAB PO STA (10:13)
[2024-05-15] MEDS: CARBAMIDE PEROXIDE 6.5% 15 ML BTL OTR SCH (15:33)
--- NOTE | 2024-05-15 17:10 | Hospitalist Progress Note ---
Date of Service May 15, 2024 Assessment & Plan (1) Acute CVA (cerebrovascular accident): Plan: Bilateral ischemic basal ganglial infarcts noted. Acute bilaterality speaks for embolic disease although cardiac echo is negative for thrombus or evidence of ASD. Neurology consultation noted. Dual antiplatelet therapy recommended for 3 weeks followed thereafter by ongoing Plavix therapy. (2) Hypertension: Plan: Amlodipine was started this admission and losartan dosage uptitrated. Metoprolol dosage uptitrated today, May 15. (3) Uncontrolled type 2 diabetes mellitus with hyperglycemia: Plan: ADA diet. Sliding scale coverage as needed. Continue current medical management (4) KIRILL (acute kidney injury): Plan: Mildly elevated creatinine on admission. Normalized with IV fluids. Monitor intake and output. Serial labs (5) Right ear pain: Plan: Uncertain etiology. Cerumen noted in the right external auditory canal. ENT consultation requested and pending Plan Rehabilitation placement is pending. Admission and Anticipated Discharge Date Admission Date: May 12, 2024 Subjective Awake and alert. She is complaining of right ear pain and has some evidence of cerium and in the ear canal. I cannot see the eardrum. ENT consultation requested. Metoprolol uptitrated for better heart rate and blood pressure control. Neurology consultation noted. They recommend dual antiplatelet therapy for 3 weeks then Plavix after that going forward. Metoprolol dosage uptitrated today, May 15, for better blood pressure control. Amlodipine is new this admission and losartan dosage has already been uptitrated. I spoke to her brother, Kamlesh, by phone. Placement at [facility] for rehab is pending. She has evidence of ischemic CVA bilaterally which speaks for possible embolic disease. Nothing notable on cardiac echo however. Review of Systems 2 Review of Systems: Constitutionalno fever or chills ENTno blurred vision, no double vision, no epistaxis, no sore throat. Right ear pain without discharge Respiratoryno cough, no wheezing, no shortness of breath Cardiacno palpitations, no chest pain, no syncope Candice nausea, vomiting, diarrhea, melena, hematochezia GUno urinary retention, no urinary incontinence, no dysuria, no hematuria Musculoskeletalno joint pain, no muscle tenderness Skinno bruising, no rashes, no pruritus Neurono isolated weakness, no paresthesia, no weakness Psychno depression, no anxiety Physical Exam 2 Physical Exam: General-alert and oriented x3, no fever, no chills HEENT-head atraumatic and normocephalic, pupils equal and reactive to light, extraocular muscles intact. Cerumen evident in the right external auditory canal Neck-no lymphadenopathy or thyromegaly, trachea midline Chest-clear to auscultation. No rales, wheezing or rhonchi Cardiac-regular rate and rhythm, normal S1 and S2 Abdomen-normal bowel sounds, no hepatosplenomegaly Extremities-no cyanosis, clubbing, or edema Neuro-cranial nerves II through XII intact, motor and sensory function within normal limits, strength symmetrical, no focal deficits Psych-normal affect, normal mood Results & Data Results & Data Vital Signs (Past 12 Hours) Vital Signs Temp Pulse Resp BP Pulse Ox O2 Del Method 05/15/24 15:49 36.7 C 68 18 137/78 98 Room Air 05/15/24 13:54 36.5 C 68 16 159/81 H 97 Room Air 05/15/24 08:25 36.6 C 89 20 166/82 H 98 Room Air Laboratory Results 05/15/24 07:01 05/15/24 07:01 PG Care Time/CCT Total # of Minutes Spent Total Time Spent with Patient: Total time spent is greater than 50% in coordination of care (as documented) at patient's floor/unit and/or counseling patient: Coding Level of Care Code 54721 SUB INP/OBS CARE 3/50MIN Diagnoses Acute CVA (cerebrovascular accident) I63.9 Hypertension I10 Uncontrolled type 2 diabetes mellitus with hyperglycemia E11.65 KIRILL (acute kidney injury) N17.9 Right ear pain H92.01
[2024-05-16 00:07] LABS: PTT LA Screen 39 sec (<=40)
[2024-05-16] MEDS: METOPROLOL SUCC 50MG EXT REL TAB PO SCH (07:44)
--- NOTE | 2024-05-16 08:40 | CT Scan Report ---
EXAM: CT head/brain wo con CLINICAL HISTORY: Lethargic TECHNIQUE: Axial non-contrast CT scan of the brain was performed from the skull base to the high parietal region. One of the following dose reduction techniques were utilized for this exam: Automated exposure control, adjustment of the mA and/or kV according to patient size, use of iterative reconstruction. COMPARISON: 05/10/2024. FINDINGS: Brain Parenchyma: OBX.5.1OBX.5.1.1 Small hypodense lesions seen in the left centrum semiovale, left basal ganglia,right internal capsule /OBX.5.1.1OBX.5.1.2 right caudate nucleus./OBX.5.1.2/OBX.5.1 Bilateral diffuse periventricular, nonspecific, hypodensities surrounding the white matter suggestive of chronic small vessel ischemia. Normal attenuation of the cerebral hemispheres, cerebellum, and brainstem. No evidence of acute infarct, hemorrhage, or mass effect. No abnormal areas of hypo- or hyperattenuation. Ventricular System: Ventricles are normal in size and configuration. No evidence of hydrocephalus or ventricular enlargement. Bilateral prominent ventricular system, subarachnoid and extra-axial spaces. Subarachnoid Spaces: Normal sulci and cisterns. No evidence of subarachnoid hemorrhage or extra-axial fluid collections. Cerebellum and Brainstem: Normal size and signal. No masses, lesions, or areas of abnormal signal. Orbits: Normal appearance of the globes, optic nerves, and extraocular muscles. No evidence of orbital masses or abnormal signal. Sinuses: Clear paranasal sinuses. No evidence of sinusitis or mucosal thickening. Mastoid Air Cells: Clear mastoid air cells. No evidence of mastoiditis. Skull: Normal skull morphology. IMPRESSION: 1. No evidence of acute cerebral infarct/hemorrhage/rebel seen. 2. Microangiopathic small vessel ischemia. 3. Leukoaraiosis. 4. Comparing the previous CT dated 05/10/2024 the findings remain stable. Electronically signed by Faith Roque 05-16-2024 08:40 AM
--- NOTE | 2024-05-16 16:03 | Hospitalist Progress Note ---
Date of Service May 16, 2024 Assessment & Plan (1) Acute CVA (cerebrovascular accident): Plan: Bilateral ischemic basal ganglial infarcts noted. Acute bilaterality speaks for embolic disease although cardiac echo is negative for thrombus or evidence of ASD. Neurology consultation noted. Dual antiplatelet therapy recommended for 3 weeks followed thereafter by ongoing Plavix therapy. She was difficult to arouse this morning and another head CT scan was obtained which showed no significant change from previous head CT scan. Seroquel at bedtime has been discontinued as possible offending agent. (2) Hypertension: Plan: Amlodipine was started this admission and losartan dosage uptitrated. Metoprolol dosage uptitrated on May 15. Heart rate and blood pressure are improved (3) Uncontrolled type 2 diabetes mellitus with hyperglycemia: Plan: ADA diet. Sliding scale coverage as needed. Continue current medical management (4) KIRILL (acute kidney injury): Plan: Mildly elevated creatinine on admission. Normalized with IV fluids. Monitor intake and output. Serial labs (5) Right ear pain: Plan: Uncertain etiology. The patient states the right ear pain is now resolved with Debrox. Cerumen noted in the right external auditory canal. ENT consultation requested and still pending Plan Rehabilitation placement was denied by insurance. [id number] is pending Admission and Anticipated Discharge Date Admission Date: May 12, 2024 Subjective Alert and oriented. She states her right ear pain is resolved. ENT evaluation is pending. She was somnolent this morning and had another head CT scan performed which is stable. Blood pressure and heart rate are improved with addition of amlodipine and up titration of losartan and metoprolol. Seroquel at bedtime has been discontinued. Unfortunately, insurance denied IPR and peer to peer evaluation has been requested because she needs IPR for her bilateral CVA. Review of Systems 2 Review of Systems: Constitutionalno fever or chills ENTno blurred vision, no double vision, no epistaxis, no sore throat. Right ear pain without discharge Respiratoryno cough, no wheezing, no shortness of breath Cardiacno palpitations, no chest pain, no syncope Candice nausea, vomiting, diarrhea, melena, hematochezia GUno urinary retention, no urinary incontinence, no dysuria, no hematuria Musculoskeletalno joint pain, no muscle tenderness Skinno bruising, no rashes, no pruritus Neurono isolated weakness, no paresthesia, no weakness Psychno depression, no anxiety Physical Exam 2 Physical Exam: General-alert and oriented x3, no fever, no chills HEENT-head atraumatic and normocephalic, pupils equal and reactive to light, extraocular muscles intact. Cerumen evident in the right external auditory canal Neck-no lymphadenopathy or thyromegaly, trachea midline Chest-clear to auscultation. No rales, wheezing or rhonchi Cardiac-regular rate and rhythm, normal S1 and S2 Abdomen-normal bowel sounds, no hepatosplenomegaly Extremities-no cyanosis, clubbing, or edema Neuro-cranial nerves II through XII intact, motor and sensory function within normal limits, strength symmetrical, no focal deficits although she has an ataxic gait Psych-normal affect, normal mood Results & Data Results & Data Vital Signs (Past 12 Hours) Vital Signs Temp Pulse Pulse Pulse Resp BP Pulse Ox 05/16/24 15:26 64 05/16/24 15:09 36.4 C L 65 18 138/81 93 05/16/24 11:55 05/16/24 11:22 57 L 05/16/24 11:01 36.5 C 62 17 121/78 97 05/16/24 07:19 36.4 C L 60 17 150/79 H 97 O2 Del Method 05/16/24 15:26 05/16/24 15:09 Room Air 05/16/24 11:55 Room Air 05/16/24 11:22 05/16/24 11:01 Room Air 05/16/24 07:19 Room Air Laboratory Results 05/15/24 07:01 05/15/24 07:01 PG Care Time/CCT Total # of Minutes Spent Total Time Spent with Patient: Total time spent is greater than 50% in coordination of care (as documented) at patient's floor/unit and/or counseling patient: Coding Level of Care Code 61107 SUB INP/OBS CARE 3/50MIN Diagnoses Acute CVA (cerebrovascular accident) I63.9 Hypertension I10 Uncontrolled type 2 diabetes mellitus with hyperglycemia E11.65 KIRILL (acute kidney injury) N17.9 Right ear pain H92.01
[2024-05-16] MEDS: MELATONIN 3 MG TAB PO PRN (20:11)
[2024-05-17 06:22] LABS: Basophils # (auto) 0.03 K/uL (0.00-0.20); Basophils % (auto) 0.4 %; Eosinophils # (auto) 0.21 K/uL (0.00-0.50); Eosinophils % (auto) 2.7 %; Hematocrit (blood only) 42.8 % (37.0-47.0); Hemoglobin 14.2 g/dl (12.0-16.0); Immature Granulocytes # (auto) 0.03 K/uL (0.01-0.20); Immature Granulocytes % (auto) 0.4 %; Lymphocytes # (auto) 2.65 K/uL (1.20-3.40); Lymphocytes % (auto) 33.7 %; Mean Corpuscular Hemoglobin 28.9 pg (25.0-34.0); Mean Corpuscular Hgb Conc 33.2 g/dL (32.0-36.0); Mean Corpuscular Volume 87.2 fL (80.0-100.0); Mean Platelet Volume 10.2 fL (9.4-12.4); Monocytes # (auto) 0.57 K/uL (0.11-0.59); Monocytes % (auto) 7.3 %; Neutrophils # (auto) 4.37 K/uL (1.40-6.50); Neutrophils % (auto) 55.5 %; Platelet Count 346 K/uL (130-400); RDW Coefficient of Variation 13.4 % (11.5-14.5); RDW Standard Deviation 42.2 fL (36.4-46.3); Red Blood Count 4.91 M/uL (4.20-5.40); White Blood Count 7.86 K/ul (4.8-10.8)
[2024-05-17 06:45] LABS: BUN Creatinine Ratio 23.5 (10-20); Calcium 10.1 mg/dl (8.6-10.3); Creatinine Clr Calc Pharmacy 30.5 ml/min; Potassium 3.9 mmol/L (3.5-5.1)
[2024-05-17 07:02] VITALS: RESP 17
[2024-05-17 11:04] VITALS: TEMP 98.1; O2SAT 93
--- NOTE | 2024-05-17 12:38 | Discharge Summary ---
Discharge Summary Date of Service May 17, 2024 Principal Dx & Hospital Course #1 = Principal Diagnosis (1) Acute CVA (cerebrovascular accident): Bilateral ischemic basal ganglial infarcts noted. Acute bilaterality speaks for embolic disease although cardiac echo is negative for thrombus or evidence of ASD. Neurology consultation noted. Dual antiplatelet therapy recommended for 3 weeks followed thereafter by ongoing Plavix therapy. She was difficult to arouse the morning of May [address] scan was obtained which showed no significant change from previous head CT scan. Seroquel at bedtime has been discontinued as possible offending agent. (2) Hypertension: Amlodipine was started this admission and losartan dosage uptitrated. Metoprolol dosage uptitrated on May 15. Heart rate and blood pressure are improved (3) Uncontrolled type 2 diabetes mellitus with hyperglycemia: ADA diet. Sliding scale coverage as needed. Continue current medical management (4) KIRILL (acute kidney injury): Mildly elevated creatinine on admission. Normalized with IV fluids. Monitor intake and output. Serial labs (5) Right ear pain: She has a probable cerumen impaction. She states that the right otalgia has resolved now that she is using the wax softening eardrops which we will continue at discharge. Ear nose and throat consultation has been discontinued. Plan Peer to peer phone call took place earlier today, May 17. She is now approved for placement at [facility] today, May 17. Admission HPI Per Admitting Provider Pt is a 74 yo female with PMH of IFG, anxiety, HTN, and HLD presenting d/t increasing weakness. Pt was recently admitted from 04/12/2024-04/15/2024 d/t TIA (with symptoms of facial droop/expressive aphasia which had resolved prior to discharge from the hospital). Today, she is here with her brother d/t increasing aphasia and weakness. They have noticed a "shuffling gait" which is unlike her. The brother states her speech is still off and sounds like her tongue is swollen in her mouth. She has recently started a new cholesterol medication (zetia) since she has been intolerant of statins in the past (which worsened her dizziness). She also completed 3 weeks of plavix + aspirin but is now only on aspirin daily. In the ER, pt was given 500cc of NS and ceftriaxone 2g. Discharge Exam General-alert and oriented x3, no fever, no chills HEENT-head atraumatic and normocephalic, pupils equal and reactive to light, extraocular muscles intact. Cerumen evident in the right external auditory canal Neck-no lymphadenopathy or thyromegaly, trachea midline Chest-clear to auscultation. No rales, wheezing or rhonchi Cardiac-regular rate and rhythm, normal S1 and S2 Abdomen-normal bowel sounds, no hepatosplenomegaly Extremities-no cyanosis, clubbing, or edema Neuro-cranial nerves II through XII intact, motor and sensory function within normal limits, strength symmetrical, no focal deficits although she has an ataxic gait Psych-normal affect, normal mood Discharge Plan Discharge Items Patient Disposition: Transfer Inpatient Rehab Fac Reason For Visit: ACUTE CVA Discharge Diagnosis: Ischemic bilateral basal ganglia CVA, uncontrolled hypertension, right otalgia with cerumen impaction Activity: Resume your previous activity Non-emergency contact: Primary Care Provider Call non-emergency contact if: your symptoms worsen Follow-up/Referrals: Manda Garcia DO [Primary Care Provider] - Diet: Carb Consistent or DM2 and Heart Healthy Addtl Attending Provider Instructions: Amlodipine is new for better blood pressure control. Losartan dosage and metoprolol dosage had been increased for better blood pressure control. Take aspirin and Plavix together for 3 weeks then Plavix alone going forward. Follow-up with primary care provider soon as possible after discharge from [facility] Pending Studies at Discharge: No Stand-Alone Forms: My [facility] Skilled Items Patient informed of condition?: Yes DNR: Yes Discharge Level of Care: Acute rehab Communicable Disease: No Discharge Prognosis: Stable Lines: None Urinary Catheter: No Medications and DC Order Prescriptions: New amlodipine [Norvasc] 5 mg Tablet 10 mg PO QAM Qty: 0 0RF Ear Drops (carbamide peroxide) 6.5 % Drops 5 drp OTR BID Qty: 0 0RF clopidogrel 75 mg Tablet 75 mg PO QAM Qty: 0 0RF losartan 50 mg Tablet 50 mg PO BID Qty: 0 0RF metoprolol succinate 50 mg Tablet Extended Release 24 Hr 100 mg PO QAM Qty: 0 0RF Continued meclizine 12.5 mg Tablet 12.5 mg PO TID PRN (Reason: dizziness/vertigo) Qty: 20 0RF aspirin 81 mg Tablet,Delayed Release (Dr/Ec) 81 mg PO QAM Qty: 90 3RF Rx Instructions: for prevention of TIA/stroke pantoprazole 40 mg Tablet,Delayed Release (Dr/Ec) 40 mg PO QAM Qty: 30 5RF Rx Instructions: for heartburn (DME) blood-glucose meter Misc See Rx Instructions .Route Qty: 1 0RF Rx Instructions: As directed (DME) OneTouch Verio test strips Strip See Rx Instructions .Route Qty: 100 1RF Rx Instructions: Check blood sugars 1x/day (DME) lancets 33 gauge misc See Rx Instructions .Route Qty: 100 1RF Rx Instructions: Check blood sugars 1x/day ezetimibe 10 mg Tablet 10 mg PO DAILY multivitamin Tablet 1 tab PO DAILY metformin 500 mg Tablet 1,000 mg PO DAILY omega-3 fatty acids 1,000 mg Capsule 1,000 mg PO DAILY cholecalciferol (vitamin D3) 50 mcg (2,000 unit) Capsule 100 mcg PO DAILY Discontinued metoprolol succinate 50 mg tablet extended release 24 hr 50 mg PO QAM Qty: 30 5RF Rx Instructions: for high blood pressure losartan 25 mg Tablet 25 mg PO BID Discharge Orders: Discharge Order (Routine); Ordered 05/17/24 Ordered By: Irvin Melgar Admission Data Admit Date/Time: 05/12/24 15:39 Attending Provider: Irvin Melgar Admit Provider: Shania Ram Primary Care Provider: Manda Garcia Other Providers: Claus Vásquez; José Miguel Chew; [facility]; [facility]; [facility] Stay Data Consultations 05/10/24 19:57 ED Decision to Admit Stat 05/10/24 20:59 Consult Neurology Routine Diagnostic Imagining Performed 05/10/24 18:23 CT head/brain wo con Stat 05/10/24 21:07 MR brain wo con Stat 05/16/24 06:[address] [CT head/brain wo con] Stat Pending Results Patient Have Any Pending Studies at Discharge: No Discharge Instructions Given to Patient (Per Discharging Provider) Amlodipine is new for better blood pressure control. Losartan dosage and metoprolol dosage had been increased for better blood pressure control. Take aspirin and Plavix together for 3 weeks then Plavix alone going forward. Follow-up with primary care provider soon as possible after discharge from [facility] Total Time Total Time Spent Total Time Spent (In Minutes): 50 minutes Coding Level of Care Code 56388 INP/OBS DISCH >30 MIN Diagnoses Acute CVA (cerebrovascular accident) I63.9 Hypertension I10 Uncontrolled type 2 diabetes mellitus with hyperglycemia E11.65 KIRILL (acute kidney injury) N17.9 Right ear pain H92.01
[2024-05-17 15:01] VITALS: BP 146/64; PULSE 80
[2024-05-18 08:47] LABS: Anti Cardiolipin Ab IgG <2.0 GPL-U/mL; Anti Cardiolipin Ab IgM 2.4 MPL-U/mL; B2 Glycoprotein IgG <2.0 U/mL (<20.0); B2 Glycoprotein IgM <2.0 U/mL (<20.0)
[2024-05-18 21:52] LABS: Factor 5 Mutation NEGATIVE
== END 2024-05-17 16:14 | DRG 64 ==
LOC: SUATTDRO → 2S 17:59 → ED 17:59 → SUATTDRO 21:00 → 2S 22:49 → SUATTDRO 05-12 15:39